=== PATIENT | female | born 1985 | race Two or more races ===

== ENCOUNTER 2025-02-15 11:17 | Emergency (ER) | payer MEDICARE, MEDICAID, SELFPAY ==
--- NOTE | ~2025-02-15 | CT_ITS ---
EXAMINATION: CT CERVICAL SPINE WITHOUT IV CONTRAST HISTORY: banging head against wall. TECHNIQUE: Helical CT of the cervical spine was performed per standard departmental protocol. Coronal and sagittal reformatted images were also evaluated. One or more of the following techniques was used for dose reduction: Automated exposure control, adjustment of the mA and/or kV according to patient size, use of iterative reconstruction technique. DLP: 627 mGy-cm COMPARISON: There are no prior studies for comparison. FINDINGS: CERVICAL SPINE: The vertebral bodies maintain normal height and alignment without evidence of fracture or subluxation. There is mild degenerative disc disease at the C5-6 level, with disc space narrowing and osteophyte formation. The remaining intervertebral disc spaces are maintained. Evaluation for disc pathology is limited by lack of intrathecal contrast material, however. BRAIN: The visualized portion of the brain is unremarkable. SINUSES: The visualized paranasal sinuses, mastoid air cells and middle ear cavities are unremarkable. LUNG APICES: The visualized lung apices are clear. 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 CT/CT cervical spine wo IV con IMPRESSION: No evidence of fracture or malalignment of the cervical spine. Electronically signed by: Liam Castellanos MD 02/15/2025 01:27 PM EDT
--- NOTE | ~2025-02-15 | CT_ITS ---
EXAMINATION: CT HEAD WITHOUT IV CONTRAST HISTORY: RUELAS s/p banging head against wall. TECHNIQUE: Unenhanced helical CT of the head was performed per standard departmental protocol. Coronal and sagittal reformats of the head were also evaluated. One or more of the following techniques was used for dose reduction: Automated exposure control, adjustment of the mA and/or kV according to patient size, use of iterative reconstruction technique. DLP: 654 mGy-cm COMPARISON: There are no prior studies for comparison. FINDINGS: BRAIN: The brain parenchyma is unremarkable. There is normal washburn/white differentiation. The ventricular system is normal in size and configuration. There is no mass effect or midline shift. No intra- or extra-axial fluid collections are identified. SINUSES: The visualized paranasal sinuses are clear. The mastoid air cells and middle ear cavities are well pneumatized. ORBITS: The visualized orbits are unremarkable. BONES/SOFT TISSUES: The extracranial soft tissues are unremarkable. The calvarium is intact. No suspicious lytic or sclerotic lesions. CT/CT head/brain wo IV con IMPRESSION: Unremarkable unenhanced head CT. Electronically signed by: Liam Castellanos MD 02/15/2025 01:23 PM EDT
--- NOTE | 2025-02-15 11:21 | ED_ITS ---
HPI - General Adult General Chief complaint: Head Injury Stated complaint: SECTION 21 + COLLAR Time Seen by Provider: 02/15/25 11:20 Source: patient, EMS, RN notes reviewed and old records reviewed Mode of arrival: EMS History of Present Illness ED Provider: Rose Acosta PA-C HPI narrative: 39-year-old female with past medical history schizophrenia, paranoia, delusions, HTN, hypothyroid, brain tumor, pseudo-seizure, PMDD presenting to the ED via EMS on Section [facility] from [facility] s/p banging head against wall [employer]. Patient reports some headache and left-sided neck pain. Denies LOC. No reported anticoagulation use. Denies vision change or loss, nausea, vomiting, weakness Related Data Allergies Allergy/AdvReac Type Severity Reaction Status Date / Time azithromycin Allergy Unknown Verified 02/15/25 11:39 bacitracin Allergy Unknown Verified 02/15/25 11:39 benzoyl peroxide Allergy Unknown Verified 02/15/25 11:39 benztropine [From Cogentin] Allergy Unknown Verified 02/15/25 11:39 carbamazepine Allergy Unknown Verified 02/15/25 11:39 clozapine Allergy Unknown Verified 02/15/25 11:39 erythromycin base Allergy Unknown Verified 02/15/25 11:39 [From Erythrocin] gabapentin Allergy Unknown Verified 02/15/25 11:39 haloperidol [From Haldol] Allergy Unknown Verified 02/15/25 11:39 lactose Allergy Unknown Verified 02/15/25 11:39 latex Allergy Unknown Verified 02/15/25 11:39 lidocaine Allergy Unknown Verified 02/15/25 11:39 meperidine Allergy Unknown Verified 02/15/25 11:39 metronidazole Allergy Unknown Verified 02/15/25 11:39 midazolam Allergy Unknown Verified 02/15/25 11:39 nickel Allergy Unknown Verified 02/15/25 11:39 phenylephrine Allergy Unknown Verified 02/15/25 11:39 potassium Allergy Unknown Verified 02/15/25 11:39 propylene glycol Allergy Unknown Verified 02/15/25 11:39 risperidone Allergy Unknown Verified 02/15/25 11:39 Review of Systems Review of Systems: Yes all other systems are reviewed and are negative Constitutional: Constitutional: Reports as per HPI Neurologic: Denies Abnormal speech present [facility] Past Medical History Attestation statement: The following information was validated with the patient. Source: old records reviewed Social History Social History Advance Directives: No Advance Directives Information Provided: Yes Do you have a plan to hurt others: No Plan Physical Exam ED Vital Signs: Vital Signs - 24 hr 02/15/25 11:25 02/15/25 11:26 02/15/25 15:23 Temperature 98.2 F 98.2 F 97.6 F Pulse Rate 104 H 104 H 80 Respiratory Rate 18 16 16 Blood Pressure 132/78 132/78 119/65 Pulse Oximetry 96 98 97 Oxygen Delivery Method Room Air Room Air Room Air 02/15/25 15:52 Temperature 97.6 F Pulse Rate 80 Respiratory Rate 16 Blood Pressure 119/65 Pulse Oximetry 97 Oxygen Delivery Method Room Air BMI result Body Mass Index 34.7 Const General: cooperative, healthy appearing and no acute distress Orientation/consciousness: patient oriented x3 Limitations: no limitations HENMT Other: + hematoma noted to central forehead with reproducible tenderness. No palpable step-off. No erythema or ecchymosis. Head: Yes normal to inspection, No Sen's sign and No raccoon eyes Ears: hearing grossly normal bilaterally General nose exam: Normal external nose present Face and sinus: Yes normal facial exam Mouth: Normal oral and palatal mucosa present and no drooling Throat: Yes posterior oropharynx normal, Yes uvula midline, No peritonsillar mass, No uvula laterally displaced and No uvular edema Eyes General: appearance normal, both eyes and all related structures Pupils: Equal, round and reactive pupils present EOM: EOMs intact bilaterally Neck Other: C-collar in place. No midline spinous tenderness or reproducible paraspinal tenderness Neck: Yes normal visual inspection and Yes no meningeal signs Resp Effort & Inspection: normal respiratory effort and no respiratory distress Auscultation: clear to auscultation bilaterally Cardio Rate: regular rate Heart sounds: S1 normal heart sound present and S2 normal heart sound present GI Inspection: Yes normal to inspection Palpation (GI): Soft to palpation, nontender, no guarding and not rigid Back/Spine/Pelvis Other: No midline cervical/thoracic/lumbar spinous tenderness/step-off or deformity Skin Rashes: no rashes Wounds: no wounds Neuro General: patient oriented x3, tone normal, moves all extremities, no meningeal signs, no focal motor deficits and CN's II-XI intact bilaterally Cranial nerves: Yes CN's II-XII intact bilaterally and Yes Equal, round and reactive pupils present Speech: No Abnormal speech present Motor exam (neuro): 5/5 motor strength present throughout Extrem General: Yes normal to inspection Course Course Course Narrative: CT head/brain wo IV con IMPRESSION: Unremarkable unenhanced head CT. CT cervical spine wo IV con IMPRESSION: No evidence of fracture or malalignment of the cervical spine. > C-collar removed Results discussed with patient including worrisome signs and symptoms and strict return precautions, and when to return to the emergency department. They verbalized understanding and feel safe for discharge at this time. Medical Decision Making Medical Decision Making MDM Narrative: 39-year-old female with past medical history schizophrenia, paranoia, delusions, HTN, hypothyroid, brain tumor, pseudo-seizure, PMDD presenting to the ED via EMS on [facility] from [facility] s/p banging head against wall [employer]. On exam vital signs stable, mildly tachycardic, NAD, nontoxic appearing, physical exam as noted above. Concern for ICH vs contusion vs concussion vs fractures. Plan: Head/C-spine CT Please refer to course for remaining clinical decision making, interpretation of labs/imaging results, and discussions with consultants and/or family members. Differential Diagnosis Differential Diagnoses: The differential diagnosis associated with the presen tation includes As above Admission/Observation Consideration of admission/observation: Escalation of care including admission/o bservation considered Lab Data [facility] Lab Attestation statement: I reviewed the patient's lab results. Independent Interpretation I performed an independent interpretation of an: CT Scan Radiology Impression Discussion of test interpretation with radiology: I have reviewed the radiologist's reading. Independent Historian Clinical information obtained from an independent historian. History obtained from or confirmed by: EMS External Record Review External record reviewed: Inpatient record, Office record, Outpatient record, Prior outpatient labs, Prior outpatient radiology, Primary care record and Outside ED record Tests considered The following testing was considered but not selected: As above Prescription Management I considered prescription management with: Other Chronic Conditions Patient?s care impacted by: Other Social Determinants Patient?s care significantly limited by Social Determinants of Health including: Inadequate housing, Problems related to primary support group, Unemployment and Other Social Determinant of Health Discharge Plan Discharge Clinical Impression: Closed head injury Patient Disposition: Xfer Other Transfer Details: [facility] Instructions: Head Injury (DC) Additional Instructions: the CAT scan of your head and neck are unremarkable Take Tylenol and ibuprofen as needed Ice area If symptoms persist or worsen return to the ED Continue home prescribed medications Referrals: Physician,Chanelle Choudhury [Primary Care Provider] - 5 days Interventions: ED Discharge Assessment Last Done: 02/15/25 15:52 Discharge Date/Time: 02/15/25 15:54 Print Language: Telugu
[2025-02-15 11:25] VITALS: BP 132/78; PULSE 104; RESP 18; TEMP 36.8; O2SAT 96
[2025-02-15 11:26] VITALS: BP 132/78; PULSE 104; RESP 16; TEMP 36.8; O2SAT 98; BMI 34.7
[2025-02-15 11:40] VITALS: BP 134/90; PULSE 105; O2SAT 95
--- NOTE | 2025-02-15 12:10 | PC.NURSE ---
Pt section 21 from [facility]. Collar applied by EMS. Pt awaiting CT results. Pt observer at bedside
--- OUTSIDE RECORDS SUMMARY | 2025-02-15 13:56 | XMS_ITS | Data Portability ---
Author Organization [facility] [place] [facility] Address [address] [place] [address] Care Team Providers Care Assistant Professor Of Archaeology Name Role Phone JUAN ANTONIO SANCHES Primary Care Provider JUAN ANTONIO SANCHES Referring Provider Assessment Encounter Date Assessment Date Assessment LastModified by Organization Details LastModified Time 05/19/2022 05/19/2022 37-year-old katerina hi with neck and bilateral upper extremity pain. Symptoms consistent with cervical radiculopathy likely involving C6. At this time due to persistence of the symptoms and despite some mild improvement with the epidural steroid injection, I would like to order an MRI of the cervical spine. I will also start her in physical therapy for the cervical and thoracic spine and we will see her back to review the imaging and discuss further options. She has done relatively well with injections, however, perhaps referral to the surgical team will be necessary Not available 05/19/2022 12:44:28 07/07/2022 07/07/2022 37-year-old katerina hi with neck and bilateral upper extremity pain. Symptoms consistent with C6 radiculopathy and also discogenic versus facet joint mediated pain from the C5-6 region. From my standpoint I would recommend continuation of home exercise program. Also physical therapy will be recommended and as needed follow-up with me for potential repeat injections versus surgical referral. She would like to hold off on the latter 2 options and will see me as needed Not available 07/08/2022 08:52:48 10/26/2022 10/26/2022 Possible psoriat ic arthritis? I reviewed dermatology notes extensively biopsy did reveal eczema but also inverse psoriasis. Polyarthropathy went away with prednisone suggesting an inflammatory component. I think she may also have a mechanical component to her low back pain. Request her x-rays done in 2020 and 2019 on a CD-ROM for my review to see if we need to obtain further studies or MRIs. Differentiate whether there is peripheral and or axial involvement? w ork-up for psoriatic arthritis. Would no longer keep checking an SUZETTE in this individual the SUZETTE will be persistently positive due to her Anna's and she has a known TPO antibody. Do not think this is causing her joint bbiggee Not available 10/26/2022 13:24:51 12/16/2022 12/16/2022 37-year-old fema le with neck and bilateral upper extremity pain. Symptoms likely secondary to the pathology at C5-6 with resultant C6 radiculopathy. Further option discussed with the patient at length. I would leeanne meant for continuation of home exercise program and wgly-gah-tndkwyh pain medications. Continuation of follow-up with rheumatology. Follow-up with me as needed for consideration of repeating the C7-T1 NACHO if clinically warranted. For now her pain is under control and we will hold off on the injection Not available 12/16/2022 13:01:16 Plan of Treatment Reminders Order Date Submit Date Provider Last Modified By Organization Details Last Modified Time Details Appointments None recorded. Lab tb (M tuberculos is), ifn-gamma sherine, blood 2022 023 [facility], [address] [place] [address], [id number], 3 11:10:34 [id number], blood 2022 023 [facility], [address] [place] [address], [id number], 3 11:10:34 C-reactive protein, quantitati ve, serum or plasma 2022 023 [facility], [address] [place] [address], [id number], 3 00:30:45 ESR (erythrocy te sedimentat ion rate), blood 2022 023 [email or web address] [facility], [address] [place] [address], [place], [address], 11:14:07 Referral None recorded. Procedures epidural steroid injection, cervical (PROC) 2021 [email or web address] Not available 13:20:19 fluoroscop ic guidance for needle placement (PROC) 2021 [email or web address] Not available 13:20:19 Surgeries None recorded. Imaging MRI, cervical spine, w/o contrast - PLEASE PUSH IMAGES THROUGH POWER SHARE 2021 [email or web address] [facility] ([facility]), [address] [place] [address], [facility], [place], [address], 10:48:10 Medication Orders betamethas one acetate and sodium phos 6 mg/mL suspension for injection 2021 [email or web address] Not available 10:00:21 Omnipaque 300 mg iodine/mL intravenou s solution 2021 [email or web address] Not available 10:04:25 lidocaine (PF) 10 mg/mL (1 %) injection solution 2021 [email or web address] 8 Not available 10:03:26 Patient TargetsNo targets recorded. Patient Instructions Encounter Date Encounter Id Patient Instructions Last Modified By Organization Details Last Modified Time 04/29/2022 [id number] weight managemen t education Not available 05/04/2022 09:08:43 05/19/2022 [id number] learning about healthy weight Not available 05/19/2022 12:26:45 07/07/2022 [id number] weight managemen t education Not available 07/08/2022 15:11:41 10/26/2022 [id number] back care and preventing injuries: care instructions [email or web address] Not available 10/26/2022 11:05:42 getting back to normal after low back pain: care instructions bbiggee Not available 10/26/2022 11:05:42 learning about relief for back pain bbiggee Not available 10/26/2022 11:05:42 45 minutes spent on this patient encounter [id number] reviewing chart reports history document labs notes chart prep reviewing etiology of problems specific diagnoses explanation and encounter documentation [email or web address] Not available 10/26/2022 13:25:32 Reason for Referral None Reported. Results Created Date Observation Date Name Description Value Unit Range Abnormal Flag Note LastModifiedBy Organization Detail LastModifiedTime 10/26/1910/30/2022 SED RATE BY MODIF IED BRIAN VANGREN sed rate by modified [email or web address] 19 mm/h < or = 20 normal Not Available [facility] [address] [place], [address], 10/30/2022 00:30:44 10/26/1910/30/2022 C-LORRAINE CTIVE PROTE IN C-reactive protein 8.8 mg/L <8.0 high Not Available [facility] [address], [place], [address], 10/30/2022 00:30:45 10/26/1910/30/2022 ABN TEST REFUS AL NIRANJAN Be advis ed that your patie nt has indic ated on the advan ce benef iciar y notic e their decis ion not to recei ve the follo wing labor atory tests . As a resul t, the tests will not be perfo rmed. Not Available [facility] [address] [place], [address], 10/30/2022 00:30:46 10/26/1910/30/2022 ABN TEST REFUS AL abn test refused 528 Not Available [facility] [address] [place], [address], 10/30/2022 00:30:46 10/26/1910/30/2022 QUANT IFERO N(R)- TB GOLD PLUS, 1 TUBE quantiferon( R)-TB gold plus, 1 tube NEGATI VE negati ve normal Negat reyes test resul t. M. sheldon goodwin is compl ex infec tion unlik kenroy. Not Available [facility] [address] [place] [address], [id number], 10/30/2022 00:30:46 10/26/1910/30/2022 QUANT IFERO N(R)- TB GOLD PLUS, 1 TUBE nil 0.04 IU/mL normal Not Available [facility] [address] [place] [address], [address], 10/30/2022 00:30:46 10/26/1910/30/2022 QUANT IFERO N(R)- TB GOLD PLUS, 1 TUBE mitogen-nil >10.00 IU/mL normal Not Available [facility] [address] [place] [address], [place], [address], 10/30/2022 00:30:46 10/26/1910/30/2022 QUANT IFERO N(R)- TB GOLD PLUS, 1 TUBE TB1-nil 0.00 IU/mL normal Not Available [facility] [address] [place] [address], [address], 10/30/2022 00:30:46 10/26/1910/30/2022 QUANT IFERO N(R)- TB GOLD PLUS, 1 TUBE TB2-nil 0.00 IU/mL normal The Nil tube value refle cts the backg round inter feron gamma immun e respo nse of the patie nt's blood sampl e. This value has been subtr acted from the patie nt's displ ayed TB and Mitog en resul ts. Lower than expec pippa resul ts with the Mitog en tube preve nt false -nega tive Quant ifero n readi ngs by detec ting a patie nt with a poten tial immun e suppr essiv e condi tion and/o r subop timal pre-a nalyt ical speci men handl ing. The TB1 Antig en tube is coate d with the M. tuber culos is-sp ecifi c antig ens desig tru to elici t respo nses from TB antig en prime d CD4+ helpe r T-lym phocy ashli. The TB2 Antig en tube is coate d with the M. tuber culos is-sp ecifi c antig ens desig tru to elici t respo nses from TB antig en prime d CD4+ helpe r and CD8+ cytot oxic T-lym phocy ashli. For addit ional infor ricki soriano e refer to https ://ed ucati on.Our[facility]Mate/f aq/FA Q204 (This link is being provi ded for infor nasreen rojo/ educa migel l purpo ses only. ) Not Available [facility] [place] [facility] [address] [place] [address], [place], [address], 10/30/2022 00:30:46 Result Notes None recorded. Problems Name Problem SNOMED Code Status Onset Date Resolution Date Notes Provider Name and Address Organization Details Recorded Time Strain of rotator cuff capsule Active 2016 Boom Paul MD [address] [place] [address], [phone], [facility] 7 10:51:48 Sprain of wrist and/or hand 051720223 Active 2016 Boom Paul MD [address] [place] [address], [phone], [place] [facility] 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 7 10:49:20 Radial styloid tenosynovitis 90515627 Active 2016 Boom Paul MD [address] [place] [address], [phone], [facility] 7 14:20:15 Pain in limb 83181491 Active Woody Suazo MD [address] [place] [address], [phone], [facility] 5 13:58:39 Contusion of knee 73250779 Active Woody Suazo MD [address] [place] [address], [phone], [facility] 5 13:58:39 Problem Notes None recorded. Procedures Surgical History Date Name Laterality Status Provider Name and Address Organization Details Recorded Time 2 Cervical NACHO completed Daniel Bae M.D. [address] [place] [address], [phone], [facility] 04/29/2022 12:32:55 1 Cervical NACHO completed Daniel Bae M.D. [address] [place] [address], [phone], [facility] 04/04/2021 12:09:51 Imaging Results None recorded. Procedure Notes None recorded. Medical Equipment None Reported. Allergies Allergen ID Allergen Name Allergen Category Reaction Reaction Severity Criticality Documentation Date Start Date Code Code System Note Provider Name and Address Organization Details Recorded Time 04855 Zithromax medicatio n Not available Not available Not available 09/18/2014 54380 4 RxNorm Tamsin Rey carpenter [facility] 4 11:32:43 52663 Haldol medicatio n Not available Not available Not available 09/18/2014 83353 9 RxNorm Tamsin Rey carpenter [facility] 4 11:32:53 63681 Demerol medicatio n Not available Not available Not available 09/18/2014 47616 1 RxNorm Tamsin Rey carpenter [facility] 4 11:33:01 64983 midazolam hydrochlo ride medicatio n Not available Not available Not available 09/18/201440192 8 RxNorm Wanda carpenter [facility] 4 11:33:15 63217 azithromy fan medicatio n rash Not available Not available 10/15/2021 80579 RxNorm Annemarie carpenter, [facility] 2 08:30:46 78518 latex environme nt,medica tion Not available Not available Not available 10/15/2021 65087 91 RxNorm Annemarie carpenter [facility] 2 08:30:55 62707 meperidin e medicatio n anaphylax is Not available Not available 10/15/2021 6754 RxNorm Annemarie carpenter [facility] 2 08:31:05 50688 midazolam medicatio n anaphylax is Not available Not available 10/15/2021 6960 RxNorm Annemarie carpenter [facility] 2 08:31:16 86196 risperido ne medicatio n respirato ry distress Not available Not available 10/15/2021 90167 RxNorm Annemarie carpenter [facility] 2 08:31:25 12247 gabapenti n medicatio n Not available Not available Not available 10/15/2021 55458 RxNorm Jesustony Carbajal jayden [facility] 2 08:31:29 61884 lactose food,medi cation Not available Not available Not available 10/15/2021 6211 RxNorm Jesustony Solomon carpenter [facility] 2 08:31:35 14323 lidocaine medicatio n Not available Not available Not available 10/26/2022 6387 RxNorm Stephanie Kiran jayden [facility] 3 10:03:56 Medications Name Sig Start Date Stop Date Status Note LastModified by Organization Details LastModified Time amoxicillin 500 mg capsule TAKE 4 CAPSULES BY MOUTH ONCE DAILY PRIOR TO DENTAL APPTS active Not Available Not Available No t Available fluconazole 100 mg tablet TAKE 1 TABLET BY MOUTH EVERY DAY 10/15 completed Not Available Not Available Not Available terconazole 0.4 % vaginal cream INSERT 1 APPLICATO RFUL VAGINALLY AT BEDTIME FOR 7 DAYS 10/15 completed Not Available Not Available Not Available ivermectin 3 mg tablet TAKE 1 TABLET (3 MG TOTAL) BY MOUTH ONCE FOR ONE DOSE active Not Available Not Available No t Available betamethaso ne valerate 0.1 % topical ointment APPLY TO AFFECTED AREA TWICE A DAY NEEDED FOR RASH active Not Available Not Available No t Available prednisone 10 mg tablet TAKE 6 TABLETS DAILY WITH BREAKFAST FOR 7 DAYS. 10/26 completed Not Available Not Available Not Available benztropine 0.5 mg tablet TAKE 1 TABLET BY MOUTH TWICE A DAY 10/15 completed Not Available Not Available Not Available ketoconazol e 2 % shampoo APPLY TO DAMP SKIN, LATHER, LEAVE ON 5 MINUTES, AND RINSE - TO FACE 3 TIMES A WEEK active Not Available Not Available No t Available ibuprofen 800 mg tablet 10/13 completed Not Available Not Available Not Available tizanidine 4 mg tablet Take 1 tablet every 6 hours by oral route as needed. 10/15 completed Not Available Not Available Not Available fluconazole 150 mg tablet TAKE 1 TABLET EVERY 48 HOURS X2 DOSES 10/26 completed Not Available Not Available Not Available ondansetron HCl 8 mg tablet TAKE 1 TABLET BY MOUTH EVERY 8 HOURS NEEDED FOR NAUSEA active Not Available Not Available No t Available venlafaxine 25 mg tablet 10/15 completed Not Available Not Available Not Available metronidazo le 0.75 % (37.5 mg/5 gram) vaginal gel INSERT 1 APPLICATO RFUL VAGINALLY AT BEDTIME FOR 5 DAYS 10/15 completed Not Available Not Available Not Available clonazepam 0.5 mg tablet TAKE 1 TABLET BY MOUTH TWICE A DAY NEEDED 2022 active Not Available Not Available Not Avai lable sertraline 100 mg tablet TAKE 2 TABLETS BY MOUTH EVERY DAY active Not Available Not Available No t Available prednisone 5 mg tablet TAKE 4 TABLETS FOR 5 DAYS, 2 TABLETS FOR 5 DAYS, 1 TABLETS FOR 5 DAYS 10/15 completed Not Available Not Available Not Available terconazole 0.8 % vaginal cream 10/15 completed Not Available Not Available Not Available clonazepam 1 mg tablet TAKE 1 TABLET BY MOUTH THREE TIMES A DAY DIRECTED active Not Available Not Available No t Available permethrin 5 % topical cream active Not Available Not Available Not Available cyanocobala min (vit B-12) 1,000 mcg tablet TAKE 1 TABLET EVERY DAY 10/13 completed Not Available Not Available Not Available promethazin e 6.25 mg-codeine 10 mg/5 mL syrup 10/15 completed Not Available Not Available Not Available topiramate 25 mg tablet 10/26 completed Not Available Not Available Not Available metronidazo le 500 mg tablet TAKE 1 TABLET BY MOUTH TWICE A DAY FOR 7 DAYS 10/15 completed Not Available Not Available Not Available bupropion HCl SR 100 mg tablet,12 hr sustained-r elease 10/26 completed Not Available Not Available Not Available vancomycin 125 mg capsule TAKE 1 CAPSULE BY MOUTH 4 TIMES A DAY FOR 14 DAYS 10/15 completed Not Available Not Available Not Available lamotrigine 25 mg tablet 10/15 completed Not Available Not Available Not Available levothyroxi ne 75 mcg tablet TAKE 1 TAB DAILY EXCEPT ON SUNDAYS TAKE 2 TABS TAKE ON AN EMPTY STOMACH. active Not Available Not Available No t Available chlorpromaz ine 10 mg tablet TAKE 1 TABLET BY MOUTH EVERY DAY AT BEDTIME NEEDED active Not Available Not Available No t Available carbamazepi ne ER 400 mg tablet,exte nded release,12 hr TAKE 1 TABLET BY MOUTH EVERYDAY AT BEDTIME 10/15 completed Not Available Not Available Not Available betamethaso ne acetate and sodium phos 6 mg/mL suspension for injection Take 2 mL by injection route. 10/26 completed Not Available Not Available Not Available terbinafine HCl 250 mg tablet 10/15 completed Not Available Not Available Not Available amoxicillin 875 mg tablet active Not Available Not Available Not Available lorazepam 0.5 mg tablet 10/13 completed Not Available Not Available Not Available clindamycin 1 % topical gel APPLY TO AFFECTED AREA TWICE A DAY FOR 10 DAYS 10/26 completed Not Available Not Available Not Available Diphenhist 25 mg tablet TAKE 2 TABLETS BY MOUTH AT BEDTIME. (DYE-FREE ) 10/13 completed Not Available Not Available Not Available hydrocortis one 2.5 % lotion APPLY TO AFFECTED AREA TWICE A DAY active Not Available Not Available No t Available dicyclomine 20 mg tablet 10/13 completed Not Available Not Available Not Available dexamethaso ne 1 mg tablet TAKE 1 TABLET AT 11 PM AND THEN GET BLOOD DRAWN AT 8 AM THE NEXT DAY. 10/26 completed Not Available Not Available Not Available meclizine 25 mg tablet TAKE 1 TABLET 3 TIMES A DAY 10/26 completed Not Available Not Available Not Available benzonatate 100 mg capsule TAKE 1-2 CAPSULES BY MOUTH EVERY 6 HOURS WHEN NECESSARY 10/13 completed Not Available Not Available Not Available doxycycline monohydrate 100 mg capsule TAKE 1 CAPSULE BY MOUTH TWICE A DAY FOR 7 DAYS active Not Available Not Available No t Available levothyroxi ne 50 mcg tablet TAKE 1 TABLET BY MOUTH EVERY MORNING. TAKE ON AN EMPTY STOMACH AND DONT EAT FOR 45 MINS 10/15 completed Not Available Not Available Not Available cephalexin 500 mg capsule TAKE 1 CAPSULE BY MOUTH THREE TIMES A DAY FOR 7 DAYS 10/15 completed Not Available Not Available Not Available triamcinolo ne acetonide 0.1 % topical ointment APPLY TWICE DAILY FOR 2 WEEKS TO PSORIASIS AREAS 10/15 completed Not Available Not Available Not Available clotrimazol e-betametha sone 1 %-0.05 % topical cream APPLY TO AFFECTED AREA TWICE A DAY FOR 10 DAYS 10/13 completed Not Available Not Available Not Available Omnipaque 300 mg iodine/mL intravenous solution Inject 3 mL by intraveno us route. 10/26 completed Not Available Not Available Not Available perphenazin e 4 mg tablet 10/15 completed Not Available Not Available Not Available sertraline 25 mg tablet 10/13 completed Not Available Not Available Not Available omeprazole 20 mg capsule,del ayed release TAKE 1 CAPSULE BY MOUTH TWICE A DAY 10/15 completed Not Available Not Available Not Available hydrocortis one 2.5 % topical cream APPLY TO RASH IN GROIN/IND ER BREASTS TWICE A DAY ~MIX WITH KETOCONAZ OLE APPLY active Not Available Not Available No t Available montelukast 10 mg tablet 10/15 completed Not Available Not Available Not Available mupirocin 2 % topical ointment APPLY TO AFFECTED AREA TWICE A DAY active Not Available Not Available No t Available diclofenac sodium 50 mg tablet,ahmet yed release 11/08 completed Not Available Not Available Not Available nystatin 100,000 unit/gram topical powder APPLY TOPICACLL Y 4 TIMES A DAY X14 DAYS 10/15 completed Not Available Not Available Not Available lorazepam 1 mg tablet TAKE 1 TABLET BY MOUTH THREE TIMES A DAY AND ONCE A DAY NEEDED 10/15 completed Not Available Not Available Not Available budesonide DR - ER 3 mg capsule,del ayed,extend ed release 10/15 completed Not Available Not Available Not Available hydroxychlo roquine 200 mg tablet 10/15 completed Not Available Not Available Not Available triamcinolo ne acetonide 0.1 % lotion APPLY TO SCALP 3 TIMES WEEKLY (AT BEDTIME 10/15 completed Not Available Not Available Not Available fluocinonid e 0.05 % topical solution PLEASE APPLY TO RASH IN SCALP TWICE DAILY active Not Available Not Available No t Available methylpredn isolone 4 mg tablets in a dose pack TAKE 6 TABLETS ON DAY 1 DIRECTED ON PACKAGE AND DECREASE BY 1 TAB EACH DAY FOR A TOTAL OF 6 DAYS 10/15 completed Not Available Not Available Not Available albuterol sulfate HFA 90 mcg/actuati on aerosol inhaler TAKE 2 PUFFS BY MOUTH EVERY 6 HOURS NEEDED FOR WHEEZE active Not Available Not Available No t Available ipratropium bromide 42 mcg (0.06 %) nasal spray 10/13 completed Not Available Not Available Not Available trihexyphen idyl 2 mg tablet TAKE 1 TABLET BY MOUTH ONCE A DAY DIRECTED TAKE AROUND NOON. active Not Available Not Available No t Available ketoconazol e 2 % topical cream APPLY TWICE A DAY TO RASH IN GROIN/UND ER BREASTS ~MIX WITH HYDROCORT ISONE active Not Available Not Available No t Available betamethaso ne dipropionat e 0.05 % topical ointment APPLY TO RASH ON HANDS TWICE DAILY UNDER GLOVES NIGHTLY active Not Available Not Available No t Available ondansetron 4 mg disintegrat ing tablet 10/13 completed Not Available Not Available Not Available fluticasone propionate 50 mcg/actuati on nasal spray,suspe nsion active Not Available Not Available Not Available dicyclomine 10 mg capsule 10/13 completed Not Available Not Available Not Available naproxen 500 mg tablet TAKE 1 TABLET BY MOUTH TWICE A DAY NEEDED 10/15 completed Not Available Not Available Not Available amoxicillin 875 mg-jamieu m clavulanate 125 mg tablet 09/17 completed Not Available Not Available Not Available Allergy (diphenhydr amine) 25 mg capsule TAKE 2 CAPSULES AT BEDTIME 10/13 completed Not Available Not Available Not Available cholestyram ine (with sugar) 4 gram oral powder 10/26 completed Not Available Not Available Not Available nitrofurant oin monohydrate /macrocryst als 100 mg capsule TAKE 1 CAPSULE BY MOUTH TWICE A DAY FOR 5 DAYS 10/15 completed Not Available Not Available Not Available Flovent HFA 44 mcg/actuati on aerosol inhaler TAKE 2 PUFFS BY MOUTH TWICE A DAY active Not Available Not Available No t Available levalbutero l HFA 45 mcg/actuati on aerosol inhaler INHALE 1 TO 2 PUFFS BY MOUTH EVERY 4 HOURS NEEDED FOR WHEEZE active Not Available Not Available No t Available Rozerem 8 mg tablet 10/13 completed Not Available Not Available Not Available mometasone 0.1 % topical solution 10/13 completed Not Available Not Available Not Available lidocaine (PF) 10 mg/mL (1 %) injection solution Take 3 mL by injection route. 10/26 completed Not Available Not Available Not Available cholecalcif benito (vitamin D3) 50 mcg (2,000 unit) capsule TAKE 2 CAPSULES (4,000 UNITS TOTAL) BY MOUTH DAILY active Not Available Not Available No t Available Vitamin D3 50 mcg (2,000 unit) tablet TAKE 2 CAPSULES (4,000 UNITS TOTAL) BY MOUTH DAILY. active Not Available Not Available No t Available Orsythia 0.1 mg-20 mcg tablet TAKE 1 TABLET BY MOUTH EVERY DAY FOR 3 WEEKS, AND THEN 1 WEEK OFF 10/13 completed Not Available Not Available Not Available Aftera 1.5 mg tablet TAKE 1 TABLET BY MOUTH ONCE FOR 1 DOSE. active Not Available Not Available No t Available Vraylar 1.5 mg capsule TAKE 1 CAPSULE BY MOUTH EVERY DAY IN THE MORNING active Not Available Not Available No t Available Vraylar 3 mg capsule 10/13 completed Not Available Not Available Not Available Paxlovid 300 mg (150 mg x 2)-100 mg tablets in a dose pack TAKE 3 TABLETS BY MOUTH TWICE A DAY FOR 5 DAYS active Not Available Not Available No t Available Vitals Date Recorded Body height Body mass index (BMI) Body weight Heart rate Pain severity - 0-10 verbal numeric rating [Score] - Reported Systolic blood pressure Diastolic blood pressure Provider Name and Address Organization Details Last Updated DateTime 2 157.48 cm 39.3 kg/m2 43748.3 6 g 73 /min 7 119 mm[Hg] 79 mm[Hg] Maggie Ward [facility] 2 11:22:49 Date Recorded Body height Body mass index (BMI) Body weight Heart rate Pain severity - 0-10 verbal numeric rating [Score] - Reported Systolic blood pressure Diastolic blood pressure Provider Name and Address Organization Details Last Updated DateTime 2 157.48 cm 39.3 kg/m2 89912.3 6 g 80 /min 7 120 mm[Hg] 76 mm[Hg] Maggie Ward [facility] 2 10:25:29 Date Recorded Body height Body mass index (BMI) Body weight Heart rate Pain severity - 0-10 verbal numeric rating [Score] - Reported Systolic blood pressure Diastolic blood pressure Provider Name and Address Organization Details Last Updated DateTime 2 157.48 cm 39.3 kg/m2 02771.3 6 g 88 /min 5 128 mm[Hg] 76 mm[Hg] Maggie Ward [facility] 2 14:21:26 Date Recorded Body height Heart rate Oxygen saturation Oxygen saturation in Arterial blood by Pulse oximetry Body mass index (BMI) Body weight Systolic blood pressure Diastolic blood pressure Provider Name and Address Organization Details Last Updated DateTime 3 157.48 cm 80 /min 98 % 98 % 39.3 kg/m2 27381.3 6 g 124 mm[Hg] 82 mm[Hg] Stephanie Beck [facility] 3 09:59:14 Date Recorded Body height Body mass index (BMI) Body weight Pain severity - 0-10 verbal numeric rating [Score] - Reported Provider Name and Address Organization Details Last Updated DateTime 12/16/2022 157.48 cm 39.3 kg/m2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
--- OUTSIDE RECORDS SUMMARY | 2025-02-15 13:56 | XMS_ITS | Encounter Summary ---
Author Organization [facility] Address [address] [place] [address] Care Team Providers Care Concierge Name Role Phone Doroteo Waldron MD Primary Care Provider [phone] Asher Hoyos Unavailable Unavailable Isiah Yoon MD Primary Care Provider [phone] Encounter Details Date Type Department Care Team (Late st Contact Info) Description 11/16/2014 Orders Only [facility] [address] [place] [address] Maninder Oliveira MD [address] [place] [address] Endometriosis, site unspecified Social History Tobacco Use Types Packs/Day Years Used Date Smoking Tobacco: Never Assessed Comments Unknown Sex and Gender Information Value Date Recorded Sex Assigned at Female 12/17/2024 7:12 AM EDT Legal Sex Female 4:40 PM EST Gender Identity Female 12/17/2024 7:12 AM EDT Sexual Orientation Not on file documented as of this encounter Plan of Treatment Not on file documented as of this encounter Visit Diagnoses Diagnosis Endometriosis, site unspecified documented in this encounter Care Teams Concierge Relationship Specialty Start Date End Date Doroteo Waldron MD PCP - General 08/13/14 12/16/24 Isiah Yoon MD [address] [place], [place] [id number] PCP - General Internal Medicine 12/17/24 Asher Hoyos 08/13/14 documented as of this encounter
--- OUTSIDE RECORDS SUMMARY | 2025-02-15 13:56 | XMS_ITS | Encounter Summary ---
Author Organization [facility] Address [address] [place] [address] Care Team Providers Care Ornamental Metal Fabricator Apprentice Name Role Phone Asher Hoyos Primary Care Provider UnavailDoroteo Townsend MD Primary Care Provider [phone] Asher Hoyos Unavailable Unavailable Isiah Yoon MD Primary Care Provider [phone] Encounter Details Date Type Department Care Team (Late st Contact Info) Description 02/15/2014 Clinical Conversion Encounter [facility] [address] [place] [address] Janina Man, EMILY [address] [place] [address] Social History Tobacco Use Types Packs/Day Years Used Date Smoking Tobacco: Never Assessed Comments Unknown Sex and Gender Information Value Date Recorded Sex Assigned at Female 12/17/2024 7:12 AM EDT Legal Sex Female 4:40 PM EST Gender Identity Female 12/17/2024 7:12 AM EDT Sexual Orientation Not on file documented as of this encounter Miscellaneous Notes * Letter - Janina Man NP - 11/29/2014 9:13 AM EST [id number] OROZCO [place], [place]. February 15, 2014 PUSHPA OROZCO [address] [id number] #[id number] : 1985 VISIT ID : [id number] Dear Ms. Orozco, This letter is in regards to your recent visit ultrasound. I am pleased to report the results showed normal ovaries and uterus. If you have any questions or concerns, please feel free to contact me. Sincerely, Janina Man NP Department of Gynecology [phone] DMM:geeta J: 0 CC: THIS DOCUMENT WAS ELECTRONICALLY AUTHENTICATED BY Janina Man NP ON 02/21/2014 10:18:55 PUSHPA OROZCO # [id number] documented in this encounter Plan of Treatment Not on file documented as of this encounter Visit Diagnoses Not on filedocumented in this encounter Care Teams Ornamental Metal Fabricator Apprentice Relationship Specialty Start Date End Date Asher Hoyos PCP - General 01/27/09 08/12/14 Doroteo Waldron MD PCP - General 08/13/14 12/16/24 Isiah Yoon MD [address] [place] [address] PCP - General Internal Medicine 12/17/24 Asher Hoyos 08/13/14 documented as of this encounter
--- OUTSIDE RECORDS SUMMARY | 2025-02-15 13:56 | XMS_ITS | Encounter Summary ---
Author Organization [facility] Address [address] [place] [address] Care Team Providers Care Pediatric Dentist Name Role Phone Doroteo Waldron MD Primary Care Provider [phone] Asher Hoyos Tapasya MD Primary Care Provider [phone] Reason for Referral * Physical Therapy (Routine) - Pending Review Specialty Diagnoses / Procedures Referred By Contac t Referred To Contact Diagnoses Myofascial pain dysfunction syndrome High-tone pelvic floor dysfunction Constipation, unspecified constipation type Pelvic pain in female Diana Singleton MD [address] [place] [address] for Outpatient Care, [address] [place] [address] Phone: tel: Referral ID Status Reason Start Date Expiration Date V isits Requested Visits Authorized [id number] Pending Review 11/22/2024 02/15/2026 1 1 Encounter Details Date Type Department Care Team (Late st Contact Info) Description 11/22/2024 Transcribe Orders Outpatient Physical Therapy [address] [place] [address] [address] [place] [address] Diana Singleton MD [address] [place] [address] for Outpatient Care, [address] [place] [address] Myofascial pain dysfunction syndrome (Primary Dx); High-tone pelvic floor dysfunction; Constipation, unspecified constipation type; Pelvic pain in female Social History Tobacco Use Types Packs/Day Years Used Date Smoking Tobacco: Never Assessed Comments Unknown Sex and Gender Information Value Date Recorded Sex Assigned at Female 12/17/2024 7:12 AM EDT Legal Sex Female 4:40 PM EST Gender Identity Female 12/17/2024 7:12 AM EDT Sexual Orientation Not on file documented as of this encounter Plan of Treatment Scheduled Referrals Name Type Priority Associated Diagnoses Orde r Schedule Ambulatory Referral to Physical Therapy Outpatient Referral Routine Myofascial pain dysfunction syndrome High-tone pelvic floor dysfunction Constipation, unspecified constipation type Pelvic pain in female Expected: 11/22/2024 (Approximate), Expires: 11/22/2025 documented as of this encounter Visit Diagnoses Diagnosis Myofascial pain dysfunction syndrome- Primary Unspecified myalgia and myositis High-tone pelvic floor dysfunction Constipation, unspecified constipation type Pelvic pain in female Unspecified symptom associated with female genital organs documented in this encounter Care Teams Pediatric Dentist Relationship Specialty Start Date End Date Doroteo Waldron MD PCP - General 08/13/14 12/16/24 Isiah Yoon MD [address] [place] [address] PCP - General Internal Medicine 12/17/24 Asher Hoyos 08/13/14 documented as of this encounter
--- OUTSIDE RECORDS SUMMARY | 2025-02-15 13:56 | XMS_ITS | Encounter Summary ---
Author Organization [facility] Address [address] [place] [address] Care Team Providers Care Accounts Receivable Accountant Name Role Phone Doroteo Waldron MD Primary Care Provider [phone] Asher Hoyos Unavailable Unavailable Isiah Yoon MD Primary Care Provider [phone] Encounter Details Date Type Department Care Team (Late st Contact Info) Description 11/16/2014 Orders Only [facility] [address] [place] [address] Maninder Oliveira MD [address] [place] [address] Endometriosis, site unspecified Social History Tobacco Use [...] unspecified documented in this encounter Care Teams Accounts Receivable Accountant Relationship Specialty Start Date End Date Doroteo Waldron MD PCP - General 08/13/14 12/16/24 Isiah Yoon MD [address] [place], [place] [id number] PCP - General Internal Medicine 12/17/24 Asher Hoyos 08/13/14 documented as of this encounter
--- OUTSIDE RECORDS SUMMARY | 2025-02-15 13:56 | XMS_ITS | Encounter Summary ---
Author Organization [facility] Address [address] [place] [address] Care Team Providers Care Teletypesetter Name Role Phone Asher Hoyos Primary Care Provider UnavailDoroteo Townsend MD Primary Care Provider [phone] Asher Hoyos Unavailable Unavailable Isiah Yoon MD Primary Care Provider [phone] Encounter Details Date Type Department Care Team (Late st Contact Info) Description 12/18/2013 Clinical Conversion Encounter [facility] [address] [address] Maninder Oliveira MD [address] [place] [id number] Social History Tobacco Use Types Packs/Day Years Used Date Smoking Tobacco: Never Assessed Comments Unknown Sex and Gender Information Value Date Recorded Sex Assigned at Female 12/17/2024 7:12 AM EDT Legal Sex Female 4:40 PM EST Gender Identity Female 12/17/2024 7:12 AM EDT Sexual Orientation Not on file documented as of this encounter Progress Notes * Maninder Oliveira MD - 11/28/2014 10:01 PM EST [id number] G[place] 12/18/2013 Name: PUSHPA OROZCO LC#: [id number] : 1985 Visit ID: [id number] Second Visit ID: [id number] HISTORY OF PRESENT ILLNESS: The patient is a 28-year-old premenopausal female who presents as a consult from Dr. Medeiros regarding pelvic pain. The patient reports that she had what appears to be a blighted ovum, she was approximately 2 to 3 months or long and she was admitted at [facility] and they did some testing. She ended up having a D and C. She reports that she was doing fine after she got her menses a couple of times normal and then several months ago was noting lower pelvic pain. She reports that the pain is in the suprapubic bilateral quadrants, constant and it may radiate to her back. She denies that it is intensified with urinating or moving the bowels. She does have similar pain or a slightly different pain when she is constipated and she strains to move her bowels, but in general it is not associated with voiding. 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 She is currently not sexually active, was so last year and reports that she was not having any pain. No problems urinating with pain, discomfort, dysuria, hematuria, some increased frequency, but nothing significant. She states that she has some vaginal odor, but no discharge. Again, no abnormal bleeding intermenstrually, did not have any when she was having intercourse. She has had several ultrasounds with Dr. Medeiros and per the patient, nothing abnormal found and we do have report here from October from his office and what was performed and nothing abnormal was found. The patient was diagnosed in the past with irritable bowel, reports not having any problems now. Regular bowel movements once a day of normal formed stool, was told to stay off the gluten and that has made her intestines better. No incontinence. PAST OBSTETRICAL HISTORY: SAB with D and C in July 2013. PAST GYNECOLOGICAL HISTORY: The patient with normal Paps. PAST MEDICAL HISTORY: Primary is Dr. Waldron. The patient reports some schizoaffective disorder and irritable bowel. Currently reports that she is on Thorazine and Trilafon. Avoiding gluten because of her bowels. ALLERGIES: NUMEROUS ALLERGIES TO DEMEROL, VERSED, METRONIDAZOLE, RISPERDAL, COGENTIN, LATEX, GLUTEN, HALDOL AND ZITHROMAX. PAST SURGICAL HISTORY: Nothing recently. PSYCHOSOCIAL: Never smoked. Denies alcohol use, caffeine once a week. MEDICATIONS: Also, on Zoloft 1 tablet a day, Klonopin, Cogentin, Topamax, Aviane and Benadryl. REVIEW OF SYSTEMS: All that is pertinent in history of present illness, see sheet, but negative constitutional, HEENT, neck, endocrine, breasts, cardiac, pulmonary, hepatic and hematologic. Remainder of systems reviewed and negative or nonpertinent. PHYSICAL EXAMINATION: Well-developed female in no apparent distress. Height 5 feet 1 inch, weight 160 and blood pressure 126/68. Mood appropriate. Skin: No rash. Musculoskeletal: Intact. Lymphatics: No lymphedema or enlarged lymph nodes. Neck: Supple. No masses, nodes or increased thyroid. Normal respiratory efforts and rhythm observed. Abdomen: Soft and nontender to superficial palpation and some mild tenderness to deep palpation in the lower abdomen, bilateral lower quadrants. No rebound or guarding. No CVA tenderness. No enlarged liver or spleen. Lower extremities: Nontender, no edema. Vulva: Normal. Vagina: Normal, well-supported compartments. No undue discharge or abnormal bleeding. Cervix is long and closed. No cervical motion tenderness. Uterus itself is mildly tender. Palpation of bladder and on bimanual, no tenderness. Adnexal area is nontender, no masses. Rectal: No lesions or masses. ASSESSMENT AND PLAN: The patient with new onset of this pelvic pain over the last several months. Exam is demonstrating some tenderness of the uterus. The patient is not quite certain if this is the pain she is feeling. Little unusual would be something gynecologic like endometriosis given that her menses cause her [id number] cramps, so there is no intensification of the constant pain at the time of her menses and when she was having intercourse was not having pain, nonetheless always a possibility. The patient is following up with GI specialist as well. I would repeat an ultrasound here. If nothing seen, can be placed on oral contraceptive pill for 4 months. If not better and continues and nothing from a GI perspective found, then would recommend laparoscopy. If nothing seen at the time of laparoscopy, would do biopsies in cul-de-sac and make sure she does not have microscopic endometriosis, but again I am sure this is not quite fit a patient with endometriosis. If something is found on ultrasound, we will evaluate and treat accordingly. Maninder Oliveira MD [phone] RB:nalini J: [id number] / [id number] CC: Doroteo Waldron MD, <Second referring Dr Name> THIS DOCUMENT WAS ELECTRONICALLY AUTHENTICATED BY Maninder Oliveira MD ON 12/26/2013 09:20:43 documented in this encounter Plan of Treatment Not on file documented as of this encounter Visit Diagnoses Not on filedocumented in this encounter Care Teams Teletypesetter Relationship Specialty Start Date End Date Asher Hoyos PCP - General 01/27/09 08/12/14 Doroteo Waldron MD PCP - General 08/13/14 12/16/24 Isiah Yoon MD [address] [place] [id number] PCP - General Internal Medicine 12/17/24 Asher Hoyos 08/13/14 documented as of this encounter
--- OUTSIDE RECORDS SUMMARY | 2025-02-15 13:56 | XMS_ITS | Clinical Summary ---
Author Organization [facility] Address [address] [place] [address] Care Team Providers Care Tunnel Inspector Name Role Phone Asher Hoyos Unavailable Unavailable Isiah Yoon MD Primary Care Provider [phone] Allergies Active Allergy Reactions Criticality Noted Date Comments Azithromycin Other (See Comments) 12/18/2013 Clonidine Unknown 12/17/2024 Pt states I don't remember, it's been so many years. Metronidazole Hives 12/17/2024 Gabapentin Unknown 12/17/2024 Haloperidol Unknown 12/17/2024 Something psychiatric Latex, Natural Rubber Unknown 12/17/2024 Lidocaine Rash Low 12/17/2024 Meperidine Other (See Comments) 12/18/2013 Anaphylaxis Midazolam Other (See Comments) 12/18/2013 Polyethylene Glycol 3350 Unknown 12/17/2024 Neomycin Unknown 12/17/2024 Risperidone Unknown 12/17/2024 Medications VITAMIN D3 1,000 unit capsule 12/18/2013 Active Text: Topamax TABS 12/18/2013 Active Text: Thorazine TABS 12/18/2013 Active Text: Cogentin TABS 12/18/2013 Active Text: KlonoPIN TABS 12/18/2013 Active Text: Zoloft TABS 12/18/2013 A ctive Text: Benadryl TABS 12/18/2013 Active Active Problems Problem Noted Date Diagnosed Date Suprapubic pain 02/12/2014 Overview (12/03/2014): Abdominal Pain Above The Pubic Area (Suprapubic) Dysmenorrhea 02/12/2014 Overview (12/03/2014): Dysmenorrhea Encounters Date Type Department Care Team Description 12/17/2024 6:42 AM EDT - 12/17/2024 11:30 AM EDT Emergency [facility] [address] [place] [address] Tingling of face (Primary Dx); Long-term current use of benzodiazepine; Brain fog; Nightmares Discharge Disposition: Home or Self Care 11/22/2024 Transcribe Orders Outpatient Physical Therapy [address] [place] [address]. [address] [place] [address] Diana Singleton MD Myofascial pain dysfunction syndrome (Primary Dx); High-tone pelvic floor dysfunction; Constipation, unspecified constipation type; Pelvic pain in female from Last 3 Months Social History Tobacco Use Types Packs/Day Years Used Date Smoking Tobacco: Never Assessed Comments Unknown Sex and Gender Information Value Date Recorded Sex Assigned at Female 12/17/2024 7:12 AM EDT Legal Sex Female 4:40 PM EST Gender Identity Female 12/17/2024 7:12 AM EDT Sexual Orientation Not on file Last Filed Vital Signs Vital Sign Reading Time Taken Comments Blood Pressure 112/72 12/17/2024 11:12 AM EDT Pulse 68 12/17/2024 11:12 AM EDT Temperature 36.9 ??C (98.4 ??F) 12/17/2024 11:12 AM E DT Respiratory Rate 18 12/17/2024 11:12 AM EDT Oxygen Saturation 99% 12/17/2024 11:12 AM EDT Inhaled Oxygen Concentration - - Weight 110 kg (243 lb) 12/17/2024 7:00 AM EDT Height 157.5 cm (5' 2 ) 12/17/2024 7:00 AM EDT Body Mass Index 44.45 12/17/2024 7:00 AM EDT Plan of Treatment Health Maintenance Due Date Last Done Comments Depression Screening 1987 Hepatitis C Screening 2001 HPV/Cotest 2013 Breast Cancer Screening 2023 COVID-19 Vaccine ( season) 2024 07/30/2023, 02/27/2022, 02/27/2022, Additional history exists Influenza Vaccine (Season Ended) 2025 07/02/2023, 09/01/2022, 09/01/2021, Additional history exists Lipid Panel 08/07/2025 08/07/2020 Blood Pressure 12/17/2025 12/17/2024 Cervical Cancer Screening 12/01/2026 Pap Smear 12/01/2026 12/01/2023 Hemoglobin A1c 02/20/2027 02/21/2024, 02/03, 05/22/2021, Additional history exists DTaP,Tdap,and Td Vaccines (4 - Td or Tdap) 07/30/2033 07/30/2023, 02/25/2018, 10/04/2007 Pneumococcal Vaccine: Pediatrics (0 to 5 Years) and At-Risk Patients (6 to 64 Years) Aged Out 02/19/2021, 06/12/2020 No longer eligibl e based on patient's age to complete this topic Meningococcal Vaccines Aged Out No lo nger eligible based on patient's age to complete this topic Procedures Procedure Name Priority Date/Time Associated Diagnosis Comments DRUG SCREEN, URINE STAT 12/17/2024 9: 13 AM EDT URINALYSIS WITH URINE CULTURE REFLEX STAT 12/17/2024 9:13 AM EDT , URINE STAT 12/17/2024 9:13 AM EDT CBC AND DIFFERENTIAL STAT 12/17/2024 9:03 AM EDT TSH REFLEX FRT4,T3 Routine 12/17/2024 9: 03 AM EDT CBC AND DIFFERENTIAL STAT 12/17/2024 9:03 AM EDT BASIC METABOLIC PANEL STAT 12/17/2024 9:03 AM EDT from Last 3 Months Results * (ABNORMAL) Drug Screen, Urine (12/17/2024 9:13 AM EDT) 6-Aceytlmorphine Screen, Urine Negative Negative 12/17/2024 9:54 AM EDT [facility] Comment:Add on order [id number] Opiates and Oxycodone, Urine, Confirmation, if confirmation desired. Amphetamines Screen, Urine Negative Negative 12/17/2024 9:54 AM EDT [facility] Comment: Screen for Amphetamine, Metamphetamine or other Amphetamine-like compounds. Add-on order [id number] Amphetamine, Urine, Confirmation if confirmation desired. Barbiturates Screen, Urine Negative Negative 12/17/2024 9:54 AM EDT [facility] Comment:Add-on order [id number] Barbiturate, Urine, Confirmation if confirmation desired. Benzodiazepine Screen, Urine Positive(A) Negative 12/17/2024 9:54 AM EDT [facility] Comment: Add-on order [id number] Benzodiazepine, Urine, Confirmation if confirmation desired. Buprenorphine Screen, Urine Negative Negative 12/17/2024 9:54 AM EDT [facility] Comment:Add-on order [id number] Buprenorphine, Urine, Confirmation if confirmation desired. Cannabinoids Screen, Urine Negative Negative 12/17/2024 9:54 AM EDT [facility] Comment:Add-on order [id number] Cannabinoids, Urine, if confirmation desired. Cocaine Metabolite Screen, Urine Negative Negative 12/17/2024 9:54 AM EDT [facility] Comment:Add-on order [id number] Cocaine, Urine, Confirmation if confirmation desired. Ethanol Screen, Urine Negative Negative 12/17/2024 9:54 AM EDT [facility] Fentanyl Screen, Urine Negative Negative 12/17/2024 9:54 AM EDT [facility] Comment:Add-on order [id number] Fentanyl Confirmation, Urine, if confirmation desired. Methadone Screen, Urine Negative Negative 12/17/2024 9:54 AM EDT [facility] Comment:Add order [id number] Me thadone, Urine, Confirmation if confirmation desired. Opiates Screen, Urine Negative Negative 12/17/2024 9:54 AM EDT [facility] Comment: Screen for Morphine, Codeine, Hyrdocodone, Hydromorphone, or other Morphine- related opiates. Add on order [id number] Opiates and Oxycodone, Urine, Confirmation if confirmation desired. Oxycodone Screen, Urine Negative Negative 12/17/2024 9:54 AM EDT [facility] Comment:Add-on order [id number] Opiates and Oxycodone, Urine, Confirmation if confirmation desired. Tramadol Screen, Urine Negative Negative 12/17/2024 9:54 AM EDT [facility] Comment:Add-on order [id number] Tramadol Confirmation, Urine, if confirmation desired. Creatinine, Sudhir Urine 61.0 >=15.0 mg/dL 12/17/2024 9:54 AM EDT [facility] Urine URINE SPECIMEN / Unknown Collection / Unknown 12/17/2024 9:13 AM EDT 12/17/2024 9:[address] [facility] - 12/17/2024 9:54 AM EDT These tests are for screening purposes only and should only be used for medical purposes. ??The cutoff concentrations for determining a positive result are as follows: 6-Acetylmorphine ?10 ng/mL 6-acetylmorphine Amphetamines ?1000 ng/mL d-methamphetamine Barbiturates ?200 ng/mL secobarbital Benzodiazepines ?200 ng/mL nordiazepam Buprenorphine ?5 ng/mL norbuprenorphine Cannabinoids ?50 ng/mL COOH-THC Cocaine ?300 ng/mL benzoylecgonine Ethanol ? 20 mg/dL ethanol Fentanyl ?5 ng/mL norfentanyl Methadone ?300 ng/mL methadone Opiates ? 300 ng/mL morphine Oxycodone ? 100 ng/mL oxycodone Tramadol ?200 ng/mL tramadol False negative and false positive results may occur due to cross-reactivity, patient medications or sample adulteration. ??If the validity of these results is uncertain, confirmatory testing can be done upon specific request. [facility] [place] URINE ORDERABLES Final Result Performing Organization Address [facility] Phone Number [facility] [address] [place] [address] * (HCG), Urine (12/17/2024 9:13 AM EDT) HCG, Urine Random Negative Negative 12/17/2024 9:26 AM EDT [facility] Comment:False positives and false negatives results may occur with qualitative tests for HCG due to unexpected antibodies. Clinical correlation is necessary. Urine URINE SPECIMEN / Unknown Collection / Unknown 12/17/2024 9:13 AM EDT 12/17/2024 9:15 AM EDT [facility] URINE ORDERABLES Final Result Performing Organization Address [facility] Phone Number [facility] [address] [place] [address] * Urinalysis with Reflex to Urine Culture (12/17/2024 9:13 AM EDT) Color, Urine Straw Colorless, Straw, Yellow 12/17/2024 9:22 AM EDT [facility] Clarity, Urine Clear Clear 12/17/2024 9:22 AM EDT [facility] pH, Urine 7.0 5.0 - 9.0 12/17/2024 9:22 AM EDT [facility] Protein, Urine Negative Negative 12/17/2024 9:22 AM EDT [facility] Glucose, Urine Negative Negative 12/17/2024 9:22 AM EDT [facility] Ketone, Urine Negative Negative 12/17/2024 9:22 AM EDT [facility] Bilirubin, Urine Negative Negative 12/17/2024 9:22 AM EDT [facility] Urobilinogen, Urine Negative Negative 12/17/2024 9:22 AM EDT [facility] Blood, Urine Negative Negative 12/17/2024 9:22 AM EDT [facility] Leukocyte, Urine Negative Negative 12/17/2024 9:22 AM EDT [facility] Nitrite, Urine Negative Negative 12/17/2024 9:22 AM EDT [facility] Specific [place], Urine 1.008 1.001 - 1.030 12/17/2024 9:22 AM EDT [facility] White Blood Cells, Urine <1 <=4 /hpf 12/17/2024 9:22 AM EDT [facility] Red Blood Cells, Urine <1 <=2 /hpf 12/17/2024 9:22 AM EDT [facility] Bacteria Urine Rare None Seen, Rare 12/17/2024 9:22 AM EDT [facility] Squamous Epithelial Cells Rare Rare, Few, None Seen /HPF 12/17/2024 9:22 AM EDT [facility] Mucous Threads 1+ 1+, 2+, None Seen 12/17/2024 9:22 AM EDT [facility] Urine MID-STREAM URINE SPECIMEN / Unknown Collection / Unknown 12/17/2024 9:13 AM EDT 12/17/2024 9:15 AM EDT [facility] URINE ORDERABLES Final Result Performing Organization Address City/State/[facility] Co de Phone Number [facility] [address] [place] [address] * CBC and Differential (12/17/2024 9:03 AM EDT) WBC 7.19 4.00 - 11.00 K/uL 12/17/2024 9:10 AM EDT [facility] RBC 4.34 4.00 - 5.20 M/uL 12/17/2024 9:10 AM EDT [facility] Hemoglobin 13.8 12.0 - 15.0 g/dL 12/17/2024 9:10 AM EDT [facility] Hematocrit 41.6 36.0 - 45.0 % 12/17/2024 9:10 AM [facility] MCH 31.8 23.0 - 37.0 pg 12/17/2024 9:10 AM [facility] MCHC 33.2 29.0 - 38.0 g/dL 12/17/2024 9:10 AM [facility] MCV 96 82 - 98 fL 12/17/2024 9:10 AM [facility] RDW 12.1 11.5 - 14.5 % 12/17/2024 9:10 AM [facility] Platelet Count 283 150 - 450 K/uL 12/17/2024 9:10 AM [facility] MPV 9.3 6.0 - 14.0 fL 12/17/2024 9:10 AM [facility] Neutrophil 43.1 % 12/17/2024 9:10 AM [facility] Lymphocyte 45.1 % 12/17/2024 9:10 AM [facility] Monocyte 8.6 % 12/17/2024 9:10 AM [facility] Eosinophil 2.5 % 12/17/2024 9:10 AM [facility] Basophil 0.6 % 12/17/2024 9:10 AM [facility] Immature Granulocyte (Burt, Myelo, Promyelocyte) 0.1 % 12/17/2024 9:10 AM [facility] Absolute Neutrophil Count 3.10 1.50 - 7.70 K/uL 12/17/2024 9:10 AM [facility] Absolute Immature Granulocyte (Burt, Myelo, Promyelocyte) 0.01 0.00 - 0.09 K/uL 12/17/2024 9:10 AM [facility] Absolute Lymphocyte Count 3.24 1.50 - 4.00 K/uL 12/17/2024 9:10 AM [facility] Absolute Monocyte Count 0.62 0.16 - 1.26 K/uL 12/17/2024 9:10 AM [facility] Absolute Eosinophil Count 0.18 0.15 - 0.30 K/uL 12/17/2024 9:10 AM [facility] Absolute Basophil Count 0.04 0.00 - 0.21 K/uL 12/17/2024 9:10 AM EDT [facility] Blood PERIPHERAL BLOOD SPECIMEN / Unknown Venipuncture / Unknown 12/17/2024 9:03 AM EDT 12/17/2024 9:07 AM EDT [facility] LAB BLOOD ORDERABLES Final Res ult Performing Organization Address [facility]/ZIP Co de Phone Number [facility] [address] [place] [address] * TSH with Rflex to Free T4 and T3 (12/17/2024 9:03 AM EDT) TSH 2.61 0.30 - 4.50 uIU/mL 12/17/2024 10:31 AM EDT [facility] Blood PERIPHERAL BLOOD SPECIMEN / Unknown Venipuncture / Unknown 12/17/2024 9:03 AM EDT 12/17/2024 9:07 AM EDT [facility] LAB BLOOD ORDERABLES Final Res ult Performing Organization Address [facility] de Phone Number [facility] [address] [place] [address] * Basic Metabolic Panel (12/17/2024 9:03 AM EDT) Sodium 140 135 - 146 mmol/L 12/17/2024 9:35 AM EDT [facility] Potassium 4.2 3.4 - 5.2 mmol/L 12/17/2024 9:35 AM EDT [facility] Comment:Samples tested in se rum may exhibit a higher potassium value than those tested on plasma. Our current range is based on plasma testing. Chloride 104 98 - 110 mmol/L 12/17/2024 9:35 AM EDT [facility] Total CO2/Bicarbonat e 27 24 - 32 mmol/L 12/17/2024 9:35 AM EDT [facility] Anion Gap 9 2 - 15 mmol/L 12/17/2024 9:35 AM EDT [facility] BUN 12 7 - 24 mg/dL 12/17/2024 9:35 AM EDT [facility] Creatinine, Blood 0.90 0.50 - 1.10 mg/dL 12/17/2024 9:35 AM EDT [facility] Glucose, Blood 92 50 - 100 mg/dL 12/17/2024 9:35 AM EDT [facility] Calcium 8.8 8.5 - 10.5 mg/dL 12/17/2024 9:35 AM EDT [facility] Estimated GFR(CKD-EPI) 79 >=60 mL/min/BSA 12/17/2024 9:35 AM EDT [facility] Blood PERIPHERAL BLOOD SPECIMEN / Unknown Venipuncture / Unknown 12/17/2024 9:03 AM EDT 12/17/2024 9:07 AM EDT [facility] LAB BLOOD ORDERABLES Final Res ult [facility] [address] [place] [address] from Last 3 Months Insurance [facility] MEDICARE Care Teams Tunnel Inspector Relationship Specialty Start Date End Date Isiah Yoon MD [address] [place] [phone] PCP - General Internal Medicine 12/17/24 Asher Hoyos 08/13/14
--- OUTSIDE RECORDS SUMMARY | 2025-02-15 13:56 | XMS_ITS | Data Portability ---
Author Organization [place] - [employer] [facility], P [facility], [employer] - [facility] Address [address] [place] [address] Care Team Providers Care Director Learning Name Role Phone JUAN ANTONIO SANCHES Primary Care Provider JUAN ANTONIO SANCHES Referring Provider Assessment Encounter Date Assessment Date Assessment LastModified by Organization Details LastModified Time 10/20/2023 10/20/2023 38-year-old female with neck and upper extremity pain. Symptoms once again consistent with cervical radiculopathy. She did with the previous C7-T1 LUCY and we will repeat 1 at this time. I will see her back in 2 weeks to reassess and consider further options if clinically warranted [email or web address] Not available 10/22/2023 08:11:12 11/11/2023 11/11/2023 38-year-old female with primarily neck and upper extremity pain. Treated for pathology at C5-6 with degenerative changes and stenosis with resultant radiculopathy. Doing well at the C7-T1 LUCY, however, still symptomatic. Pain level on average 4-6 out of 10. Also has a to take care of, which exacerbates the pain and affecting quality of life. At this point I would recommend continuation of current home exercise program. She will also be scheduled for repeat C7-T1 LUCY to get additional pain down potentially. Consider surgical referral, however, for now she is unable to do the due to the Not available 11/11/2023 14:49:14 05/22/2024 05/22/2024 Left ankle sprain, low back and left hip pain Not available 05/22/2024 09:15:52 Plan of Treatment Reminders Order Date Submit Date Provider Last Modified By Organization Details Last Modified Time Details Appointments Follow Up 2024 01:00P Aamir Bae MD Not available Not available Not available Lab None recorded. Referral None recorded. Procedures epidural steroid injection , cervical (PROC) 2023 024 [facility], [address] [place] [address], [phone], 01/24/2024 16:00:35 fluorosco pic guidance for needle placement (PROC) 2023 024 [facility], [address] [place] [address], [phone], 01/24/2024 16:00:35 epidural steroid injection , cervical (PROC) [address], [address], 11/12/2023 15:37:47 epidural steroid injection , cervical (PROC) 2023 024 [facility], [address] [place] [address], [phone], 10/25/2023 08:54:22 fluorosco pic guidance for needle placement (PROC) 2023 024 [facility], [address] [place] [address], [phone], 10/25/2023 09:06:31 Surgeries None recorded. Imaging XR, ankle, 3 or more view [address], [address], 05/22/2024 09:30:41 XR, pelvis, 1 or 2 view [address], [address], 05/22/2024 09:30:41 Medication Orders Omnipaque 300 mg iodine/mL intraveno us solution 2023 024 [email or web address] Not available 11/29/2023 09:06:55 lidocaine (PF) 10 mg/mL (1 %) injection syringe 2023 024 [email or web address] Not available 11/29/2023 09:07:24 betametha sone acetate and sodium phos 6 mg/mL suspensio n for injection 2023 024 [email or web address] Not available 11/29/2023 09:13:18 Omnipaque 300 mg iodine/mL intraveno us solution 2023 024 Not available 10/27/2023 10:06:36 lidocaine (PF) 10 mg/mL (1 %) injection syringe 2023 024 Not available 10/27/2023 10:07:00 betametha sone acetate and sodium phos 6 mg/mL suspensio n for injection 2023 024 Not available 10/27/2023 10:07:15 Patient TargetsNo targets recorded. Patient Instructions Encounter Date Encounter Id Patient Instructions Last Modified By Organization Details Last Modified Time 10/20/2023 [id number] weight managemen t education Not available 10/21/2023 15:42:07 11/11/2023 [id number] weight managemen t education Not available 11/12/2023 08:44:50 11/24/2023 [id number] weight managemen t education Not available 11/25/2023 08:02:42 05/22/2024 [id number] Reviewed exam an d x-ray findings. Discussed management moving forward. Her radiographs are unremarkable. We discussed management options. We will enroll her in outpatient therapy which I gave her a referral for today. Continue with low impact exercise and activities as tolerated. Ice or heat and anti-inflammatori es as needed. I would expect symptom resolution with physical therapy. Follow-up as needed from there with any ongoing issues or concerns. Not available 05/22/2024 09:01:08 Reason for Referral None Reported. Results Created Date Observation Date Name Description Value Unit Range Abnormal Flag Note LastModifiedBy Organization Detail LastModifiedTime 01/14/20 23 01/13/2023 imagi ng inter preta tion No observ ation record ed. [address], [address], 01/18/2023 15:09:16 01/14/20 23 01/13/2023 imagi ng inter preta tion No observ ation record ed. [address], [address], 01/18/2023 15:09:20 01/14/20 23 01/13/2023 imagi ng inter preta tion No observ ation record ed. [address], [address], 01/18/2023 15:09:23 01/14/20 23 01/13/2023 imagi ng inter preta tion No observ ation record ed. [address], [address], 01/18/2023 15:09:26 05/22/20 24 XR, ankle , 3 or more view No observ [email or web address] [address], [address], 05/22/2024 09:00:45 05/22/20 24 XR, pelvi s, 1 or 2 view No observ ation [facility] ed. [email or web address] [address], [address], 05/22/2024 09:16:03 Result Notes None recorded. 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 Not Available [facility] 3 04:35:23 Sprain of wrist and/or hand 380628472 Active 2016 Not Available [facility] 3 04:35:23 Radial styloid tenosynovitis 72377705 Active 2016 Not Available [facility] 3 04:35:23 Contusion of knee 40235805 Active Not Available [facility] 3 04:35:23 Strain of rotator cuff capsule Active 2016 Not Available [facility] 3 04:35:23 Pain in limb 51920544 Active Not Available [facility] 3 04:35:24 Degeneration of cervical intervertebra l disc 27066649 Active 2023 Daniel Bae MD [address], [place], [address] , [facility] 4 08:08:12 Cervical spondylosis 573591480 Active 2023 Daniel Bae MD [address], [place], [address] , [facility] 4 08:08:12 Neck pain 13886422 Active 2023 Daniel Bae MD [address], [place], [address] , [facility] 4 08:08:12 Problem Notes None recorded. Procedures Surgical History Date Name Laterality Status Provider Name and Address Organization Details Recorded Time 4 cervical lucy completed MD [address], [place], [address], [facility] 11/24/2023 12:56:46 4 cervical lucy completed MD [address], [place], [address], [facility] 10/22/2023 08:08:25 Imaging Results Imaging Date Name Status LastModified by Organization Details LastModified Time 01/13/2023 imaging interpretation completed [email or web address] [address] [place], [address], 01/18/2023 15:09:16 01/13/2023 imaging interpretation completed [facility] [address] [place], [address], 01/18/2023 15:09:20 01/13/2023 imaging interpretation completed [address], [address], 01/18/2023 15:09:23 01/13/2023 imaging interpretation completed [address], [address], 01/18/2023 15:09:26 05/22/2024 XR, ankle, 3 or more view completed [address], [address], 05/22/2024 09:00:45 05/22/2024 XR, pelvis, 1 or 2 view completed formerly [facility] - [address], [address], 05/22/2024 09:16:03 Procedure Notes None recorded. Medical Equipment None Reported. Allergies Allergen ID Allergen Name Allergen Category Reaction Reaction Severity Criticality Documentation Date Start Date Code Code System Note Provider Name and Address Organization Details Recorded Time 23671 Zithromax medicatio n Not available Not available Not available 01/02/202319637 4 RxNorm Not Available [facility] 3 04:37:52 06796 midazolam hydrochlo ride medicatio n Not available Not available Not available 01/02/2023 8 RxNorm Not Available [facility] 3 04:37:52 75047 risperido ne medicatio n respirato ry distress Not available Not available 01/02/2023 51815 RxNorm Not Available [facility] 3 04:37:52 14749 midazolam medicatio n anaphylax is Not available Not available 01/02/2023 6960 RxNorm Not Available [facility] 3 04:37:53 82721 meperidin e medicatio n anaphylax is Not available Not available 01/02/2023 6754 RxNorm Not Available [facility] 3 04:37:53 31950 lidocaine medicatio n Not available Not available Not available 01/02/2023 6387 RxNorm Not Available [facility] 3 04:37:53 84948 latex environme nt,medica tion Not available Not available Not available 01/02/2023 32581 91 RxNorm Not Available [facility] 3 04:37:53 28459 lactose food,medi cation Not available Not available Not available 01/02/2023 6211 RxNorm Not Available [facility] 3 04:37:53 03847 Haldol medicatio n Not available Not available Not available 01/02/2023 78679 9 RxNorm Not Available [facility] 3 04:37:53 07951 gabapenti n medicatio n Not available Not available Not available 01/02/2023 22147 RxNorm Not Available [facility] 3 04:37:53 87368 Demerol medicatio n Not available Not available Not available 01/02/2023 46392 1 RxNorm Not Available [facility] 3 04:37:53 44916 azithromy fan medicatio n rash Not available Not available 01/02/2023 41542 RxNorm Not Available [facility] 3 04:37:54 Medications Name Sig Start Date Stop Date Status Note LastModified by Organization Details LastModified Time hydrocortis one 5 mg tablet TAKE 1 TABLET BY MOUTH EVERY DAY IN THE EVENING active Not Available Not Available No t Available amoxicillin 500 mg capsule TAKE 4 CAPSULES [...] Not Available Not Available No t Available acetaminoph en 325 mg tablet TAKE 3 TABLETS BY MOUTH EVERY 6 HOURS NEEDED. active Not Available Not Available No t Available prednisone 10 mg tablet TAKE 6 TABLETS DAILY WITH BREAKFAST FOR 7 DAYS. 10/26 completed Not Available Not Available Not Available benztropine 0.5 mg tablet TAKE 1 TABLET BY MOUTH TWICE A DAY 10/15 completed Not Available Not Available Not Available labetalol 200 mg tablet TAKE 1 TABLET (200 MG TOTAL) BY MOUTH 2 TIMES A DAY. active Not Available Not Available No t Available ketoconazol e 2 % shampoo APPLY TO DAMP SKIN, LATHER, LEAVE ON 5 MINUTES, AND RINSE- USE 2 TIMES A WEEK. active Not Available Not Available No t Available miconazole nitrate 2 % topical cream APPLY TO AFFECTED AREA TWICE A DAY (NOT COVERED) active Not Available Not Available No t Available ibuprofen 800 mg tablet TAKE 1 TABLET BY MOUTH 3 TIMES A DAY WITH MEAL(S). active Not Available Not Available No t Available tizanidine 4 mg tablet Take 1 tablet every 6 hours by oral route as needed. 10/15 completed Not Available Not Available Not Available fluconazole 150 mg tablet TAKE 1 TABLET (150 MG TOTAL) BY MOUTH ONCE FOR 1 DOSE. active Not Available Not Available No t Available ondansetron HCl 8 mg tablet TAKE [...] TABLET BY MOUTH TWICE A DAY NEEDED 10/26 completed Not Available Not Available Not Available sertraline 100 mg tablet TAKE 2 TABLETS [...] Not Available Not Available Not Available clotrimazol e 1 % vaginal cream PLACE 1 APPLICATO R (5 G TOTAL) VAGINALLY NIGHTLY AT BEDTIME FOR 7 DAYS. active Not Available Not Available No t Available topiramate 25 mg tablet 10/26 completed Not Available Not Available Not Available metronidazo le 500 mg tablet TAKE 1 TABLET BY MOUTH TWICE A DAY FOR 7 DAYS 10/15 completed Not Available Not Available Not Available nifedipine ER 30 mg tablet,exte nded release TAKE 2 TABLETS BY MOUTH DAILY active Not Available Not Available No t Available amlodipine 5 mg tablet TAKE 1 TABLET (5 MG TOTAL) BY MOUTH DAILY. active Not Available Not Available No t Available liothyronin e 5 mcg tablet TAKE 1/2 TABLET TWICE DAILY IN THE MORNING AND AFTERNOON active Not Available Not Available No t Available bupropion HCl SR 100 mg tablet,12 [...] tablet TAKE 1 TABLET BY MOUTH EVERY NIGHT AT BEDTIME DIRECTED active Not Available Not Available No t Available carbamazepi ne ER 400 mg tablet,exte nded release,12 hr TAKE 1 TABLET BY MOUTH EVERYDAY AT BEDTIME 10/15 completed Not Available Not Available Not Available Miconazole- 7 2 % vaginal cream PLACE 1 APPLICATO R VAGINALLY NIGHTLY AT BEDTIME active Not Available Not Available No t Available levothyroxi ne 100 mcg tablet TAKE 1 TABLET EVERY DAY FOR 6 DAYS PER WEEK. active Not Available Not Available No t Available betamethaso ne acetate and sodium phos 6 mg/mL suspension for injection Take 2 mL by injection route. 2023 active Not Available Not Available Not Avai lable terbinafine HCl 250 mg tablet 10/15 completed Not Available Not Available Not Available levothyroxi ne 88 mcg tablet TAKE 1 TABLET BY MOUTH EVERY MORNING. active Not Available Not Available No t Available amoxicillin 875 mg tablet active Not Available Not Available Not Available magnesium oxide 400 mg (241.3 mg magnesium) tablet TAKE 1 TABLET BY MOUTH EVERY DAY active Not Available Not Available No t Available lorazepam 0.5 mg tablet 10/13 completed [...] completed Not Available Not Available Not Available nifedipine ER 90 mg tablet,exte nded release 24 hr TAKE 1 TABLET BY MOUTH EVERY DAY active Not Available Not Available No t Available meclizine 25 mg tablet TAKE 1 TABLET 3 TIMES A DAY 10/26 completed Not Available Not Available Not Available benzonatate 100 mg capsule TAKE 1 CAPSULE BY MOUTH THREE TIMES A DAY NEEDED FOR COUGH active Not Available Not Available No t Available doxycycline monohydrate 100 mg capsule TAKE [...] completed Not Available Not Available Not Available Gas Relief (simethicon e) 80 mg chewable tablet TAKE 1 TABLET BY MOUTH EVERY 6 HOURS NEEDED. active Not Available Not Available No t Available triamcinolo ne acetonide 0.1 % topical [...] Inject 3 mL by intraveno us route. 2023 active Not Available Not Available Not Avai lable perphenazin e 4 mg tablet 10/15 completed Not Available Not Available Not Available sertraline 25 mg tablet 10/13 completed Not Available Not Available Not Available Senna Laxative 8.6 mg tablet TAKE 1 TABLET BY MOUTH EVERY DAY active Not Available Not Available No t Available omeprazole 20 mg capsule,del ayed release [...] Available Not Available Not Available hydrocortis one 10 mg tablet TAKE 1 TABLET (10 MG TOTAL) BY MOUTH EVERY MORNING. active Not Available Not Available No t Available nystatin 100,000 unit/gram topical powder APPLY TOPICACLL Y 4 TIMES A DAY X14 DAYS 10/15 completed Not Available Not Available Not Available fluocinolon e 0.01 % topical solution APPLY TO AFFECTED AREA TWICE A DAY active Not Available Not Available No t Available lorazepam 1 mg tablet TAKE 1 [...] completed Not Available Not Available Not Available ibuprofen 600 mg tablet TAKE 1 TABLET BY MOUTH EVERY 6 HOURS NEEDED FOR PAIN active Not Available Not Available No t Available fluocinonid e 0.05 % topical solution [...] sulfate HFA 90 mcg/actuati on aerosol inhaler INHALE 2 PUFFS INTO THE LUNGS NIGHTLY AT BEDTIME NEEDED FOR WHEEZING. active Not Available Not Available No t Available ipratropium bromide 42 mcg (0.06 %) nasal spray 10/13 completed Not Available Not Available Not Available trihexyphen idyl 2 mg tablet TAKE 1 AND 1/2 TABLETS (3 MG TOTAL) BY MOUTH DAILY active Not Available [...] Available Not Available Not Available levothyroxi ne 112 mcg tablet TAKE 1 TABLET BY MOUTH EVERY MORNING active Not Available Not Available No t Available amoxicillin 875 mg-donnie m clavulanate 125 mg tablet 09/17 completed Not Available Not Available Not Available oxycodone 5 mg tablet TAKE 1 TABLET (5 MG TOTAL) BY MOUTH EVERY 6 HOURS NEEDED (PARTIAL FILL OKAY) active Not Available Not Available No t Available modafinil 100 mg tablet PLEASE SEE ATTACHED FOR DETAILED DIRECTION S active Not Available Not Available No t Available Allergy (diphenhydr amine) 25 mg capsule TAKE 2 CAPSULES AT BEDTIME 10/13 completed Not Available Not Available Not Available cholestyram ine (with sugar) 4 gram oral powder 10/26 completed Not Available Not Available Not Available nitrofurant oin monohydrate /macrocryst als 100 mg capsule TAKE 1 CAPSULE BY MOUTH TWICE A DAY FOR 7 DAYS active Not Available Not Available No t Available Flovent HFA 44 mcg/actuati on aerosol [...] lidocaine (PF) 10 mg/mL (1 %) injection syringe Take 3 mL by injection route. 2023 active Not Available Not Available Not Avai lable cholecalcif benito (vitamin D3) 50 mcg (2,000 unit) capsule TAKE 2 CAPSULES (4,000 UNITS TOTAL) BY MOUTH DAILY active Not Available Not Available No t Available Vitamin D3 50 mcg (2,000 unit) tablet TAKE 2 CAPSULES (4,000 UNITS TOTAL) BY MOUTH DAILY. active Not Available Not Available No t Available Purelax 17 gram oral powder packet DISSOLVE 17 GRAMS INTO WATER AND DRINK BY MOUTH EVERY DAY active Not Available [...] Available Not Available No t Available Vraylar 4.5 mg capsule TAKE 1 CAPSULE BY MOUTH EVERY DAY DIRECTED active Not Available Not Available No t Available Vraylar 3 mg capsule TAKE 1 CAPSULE BY MOUTH DAILY. active Not Available Not Available No t Available Robitussin Cough-Chest Congestion DM 5 mg-100 mg/5 mL oral liquid TAKE 20 ML (10MG/400 MG/20MLS) BY MOUTH 2 TIMES A DAY. active Not Available Not Available No t Available Wegovy 0.25 mg/0.5 mL subcutaneou s pen injector INJECT 0.5 ML (0.25 MG TOTAL) UNDER THE SKIN EVERY 7 DAYS active Not Available Not Available No t Available Paxlovid 300 mg (150 mg x 2)-100 mg tablets in a dose pack TAKE 3 TABLETS BY MOUTH TWICE A DAY FOR 5 DAYS active Not Available Not Available No t Available Vitals Date Recorded Body height Body mass index (BMI) Body weight Pain severity - 0-10 verbal numeric rating [Score] - Reported Provider Name and Address Organization Details Last Updated DateTime 10/20/2023 157.48 cm 39.3 kg/m2 61678.36 g 6 [facility] 10/20/2023 16:20:01 Date Recorded Body height Body mass index (BMI) Body weight Pain severity - 0-10 verbal numeric rating [Score] - Reported Provider Name and Address Organization Details Last Updated DateTime 11/11/2023 157.48 cm 39.3 kg/m2 76584.36 g 7 [facility] 11/11/2023 14:21:33 Date Recorded Body height Body mass index (BMI) Body weight Pain severity - 0-10 verbal numeric rating [Score] - Reported Heart rate Systolic blood pressure Diastolic blood pressure Provider Name and Address Organization Details Last Updated DateTime 4 157.48 cm 39.3 kg/m2 55781.3 6 g 7 76 /min 118 mm[Hg] 82 mm[Hg] [facility] 4 11:40:39 Date Recorded Body height Body mass index (BMI) Body weight Provider Name and Address Organization Details Last Updated DateTime 05/22/2024 157.48 cm 39.3 kg/m2 84828.36 g Merle Parekh [facility] 05/22/2024 08:35:48 Date Recorded Body mass index (BMI) Body height Pain severity - 0-10 verbal numeric rating [Score] - Reported Body weight Provider Name and Address Organization Details Last Updated DateTime 12/16/2022 39.3 kg/m2 157.48 cm 3 92479.36 g Not Available [facility] 01/02/2023 04:34:22 Social History Question Answer Notes LastModified by N-1-1 Details LastModified Time Tobacco Smoking Status Never Smoker Not Available [facility] 01/02/2023 04:31:29 What Was The Date Of Your Most Recent Tobacco Screening? 05/22/2024 [email or web address] Information not available 05/22/2024 How Much Tobacco Do You Smoke? No [id number] Information not available 01/02/2023 Has Tobacco Cessation Counseling Been Provided? No [email or web address] Information not available 05/22/2024 Sex: Unknown Functional Status Question Answer Note LastModified by N-1-1 Details LastModified Time Do you use any illicit or recreational drugs? No [email or web address] Information not available 05/22/2024 Do you or have you ever used any other forms of tobacco or nicotine? No Information not available 05/22/2024 What is your level of alcohol consumption? None [id number] Information not available 01/02/2023 Are you currently employed? No [id number] Information not available 01/02/2023 Mental Status None recorded. Family History Relationship Description Onset Age of this Age Resolved Age Notes LastModified by Organization Details LastModified Time Mother Neoplasm of liver [id number] Not available 01/02/2023 04:31:43 Sister Lupus erythematosu s [id number] Not available 01/02/2023 04:31:43 Sister Lupus erythematosu s [id number] Not available 01/11/2023 19:39:42 Medical History Condition Response Diabetes N Coronary Artery Disease N Rheumatic Fever N Gout N Arthritis N Emphysema N Tuberculosis N Cancer N Lung Disease N Glaucoma N Pneumonia N Leg or Foot Ulcers N Pacemaker N Anemia N Psoriasis N Stroke/TIA N Hepatitis N Heart Attack ([place]) N Rheumatoid Arthritis N Heart Problems (atrial fibrillation, [place], pacemaker) N Osteoporosis N Kidney Disease N Gynecological HistoryNo gynecological history recorded. Obstetrics History GPAL:G 0 P 0 0 0 0 Past Encounters Encounter ID Performer Location Encounter Start Date Encounter Closed Date Diagnosis/Indication Diagnosis SNOMED-CT Code Diagnosis ICD10 Code Diagnosis Note [id number] MD AQUILINO Daily [facility]GRATION_ DEFAULT_1 _2 , 09/18/2014 00:00:00 09/18/2014 12:10:54 [id number] MD AQUILINO Daily [facility]GRATION_ DEFAULT_1 _2 , 11/20/2014 00:00:00 11/20/2014 16:41:04 [id number] MD AQUILINO Daily IGRATION_ DEFAULT_1 _2 , 01/22/2015 00:00:00 01/22/2015 13:59:06 [id number] Boom Paul MD [facility] [address] [address] 06/23/2017 00:00:00 06/23/2017 10:53:31 [id number] Boom Paul MD [address] [address] 07/21/2017 00:00:00 07/21/2017 10:49:48 [id number] Boom Paul MD [facility] [address] [address] 08/18/2017 00:00:00 08/18/2017 14:20:34 [id number] Obdulio Verduzco DPM [facility] [address] [id number] 09/17/2017 00:00:00 09/17/2017 11:47:41 [id number] _ATHN_MIGR ATION_2 [facility] [address] [address] 10/13/2017 00:00:00 10/18/2017 17:08:02 [id number] Mirtha Cortez MD [facility] OFF[facility] - [address] [id number] 11/08/2017 00:00:00 11/10/2017 16:02:27 [id number] ELIAS Lamb [facility] OFF[facility] - [address] [address] 01/14/2021 00:00:00 01/14/2021 15:30:02 [id number] MD ANTONIO Yang OFFICE - [place] [address] [place] [id number] 02/14/2021 00:00:00 02/17/2021 15:13:16 [id number] MD ANTONIO Yang OFFICE - [address] [id number] 03/21/2021 00:00:00 03/21/2021 11:58:35 [id number] MD ANTONIO Yang OFFICE - [address] [id number] 03/26/2021 00:00:00 04/04/2021 12:09:59 [id number] MD ANTONIO Yang OFFICE - [address] [id number] 04/08/2021 00:00:00 04/14/2021 11:41:34 [id number] Mirtha ALVAREZ OFFICE - [address] [address] 10/15/2021 00:00:00 10/15/2021 15:52:12 [id number] Mirtha ALVAREZ [facility] [address],[facility] [address] [place] [address] 11/11/2021 00:00:00 11/11/2021 19:32:21 [id number] MD ANTONIO Yang OFFICE - [address] [id number] 03/17/2022 00:00:00 03/18/2022 12:26:21 [id number] MD ANTONIO Yang OFFICE - [place] [address] [place] [id number] 04/29/2022 00:00:00 04/29/2022 12:33:03 [id number] MD ANTONIO Yang OFFICE - [address] [id number] 05/19/2022 00:00:00 05/19/2022 12:44:40 [id number] MD ANTONIO Yang OFFICE - [place] [address] [place] [id number] 07/07/2022 00:00:00 07/08/2022 08:53:19 [id number] Mirtha Cortez MD [facility] [place] [address] [place] [phone] 10/26/2022 00:00:00 10/26/2022 13:25:45 [id number] MD [facility] [address] [address] 12/16/2022 00:00:00 12/16/2022 13:01:37 [id number] [facility] [address] [address] 10/20/2023 15:14:34 10/20/2023 16:26:06 Body mass index 30+ - obesity 788960999 Z68.39 Cervical spondylosis 387 281888 M47.812 Degenerati on of cervical intervertebral disc 73849980 M50.30 Neck pain 75037263 M54.2 [id number] Daniel Bae MD [facility] [address] [phone] 11/11/2023 13:56:08 11/11/2023 14:49:00 Body mass index 30+ - obesity 962152674 Z68.39 Cervical spondylosis 387 154615 M47.812 Degenerati on of cervical intervertebral disc 66040175 M50.30 [id number] Daniel Bae MD [facility] [address] [address] 11/24/2023 11:01:03 11/24/2023 11:44:40 Body mass index 30+ - obesity 651922260 Z68.39 Cervical spondylosis 387 092695 M47.812 Degenerati on of cervical intervertebral disc 31031691 M50.30 Neck pain 06207629 M54.2 [id number] MD [facility] [address] [address] 05/22/2024 08:31:47 05/22/2024 09:30:41 Sprain of left ankle [id number] 8186212 S93.402A Body mass index 30+ - obesity 691830013 Z68.39 Pain in pelvis 47098212 R10.2 Low back pain 454672306 M54.50 Health Concerns Section Related Observation LastModified by Organization Detai ls LastModified Time None Recorded Concern Status LastModified by Organization Details LastModified Time None Recorded Advance Directives Directive None Recorded Payers Encounter Date Sequence Insurance Name Policy Number Policy Best Covered Member ID Best Member ID Guarantor Name 10/20/2023 1 [place] [employer] Yaneth Orozco [id number] Yaneth Orozco 10/20/2023 2 [place] Yaneth Orozco [id number] Yaneth Orozco 11/11/2023 1 [place] [employer] Yaneth Orozco [id number] Yaneth Orozco 11/11/2023 2 [place] Yaneth Orozco [id number] Yaneth Orozco 11/24/2023 1 [place] [employer] Yaneth Orozco [id number] Yaneth Orozco 11/24/2023 2 [place] Yaneth Orozco [id number] Yaneth Orozco 05/22/2024 1 [place] [employer] Yaneth Orozco [id number] Yaneth Orozco 05/22/2024 2 [place] Yaneth Orozco [id number] Yaneth Orozco Notes Date Note Type Note Provider Name and Address Organization Details Recorded Time 10/20/2023 text/html Yaneth is a jj y pleasant 38-year-old female see me today for chief complaint of neck and bilateral upper extremity pain. Symptoms consistent with C6 radiculopathy. Similar pain to previous. She had a C7-T1 LUCY in December of last year and did fairly well for the next 5 months with 70% relief. She did get and gave 1 week ago. During the the pain is flared up and she wants to repeat the injection. She is not breast-feeding at this time. She is continue with a home exercise program, however, still has pain despite that. Pain is 6-8 out of 10. No arm weakness reported Daniel Bae MD [address],[facility], [place], [address], [facility], [facility] 10/22/2023 08:11:26 11/11/2023 text/html Yaneth is a jj y pleasant 38-year-old female seeing me today for chief complaint of neck and upper extremity pain. Status post C7-T1 LUCY. Reports 40% relief, however, pain is still present in the neck with radiation to the upper extremities. 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 She has no new onset symptoms since the injection. Daniel Bae MD [address], [place], [address], [facility] 11/11/2023 14:49:30 05/22/2024 text/html Yaneth is here today for a new issue involving her left ankle. She started an exercise program with her sister about 10 days ago. She does not recall an injury but has noted some increased pain in her left ankle since then. She also is having some pain in her pelvic region since she had a earlier in the year. She is pending pelvic floor therapy. She has noted some groin pain and weakness with efforts at lifting her left leg. No neurologic symptoms down the leg. No recent imaging to date for either of these issues. Woody Suazo MD [address], [place], [address], [facility] 05/22/2024 09:16:22 OBGyn Episode No OBEpisode recorded.
--- OUTSIDE RECORDS SUMMARY | 2025-02-15 13:56 | XMS_ITS | Encounter Summary ---
Author Organization [facility] Address [address] [place] [address] Care Team Providers Care Status Controller Name Role Phone Asher Hoyso Primary Care Provider UnavailDoroteo Townsend MD Primary Care Provider [phone] Asher Hoyos Unavailable Unavailable Isiah Yoon MD Primary Care Provider [phone] Encounter Details Date Type Department Care Team (Late st Contact Info) Description 12/22/2013 Clinical Conversion Encounter [facility] [address] [place] [id number] Janina Man, EMILY [address] [place] [address] Social History Tobacco Use Types Packs/Day Years Used Date Smoking Tobacco: Never Assessed Comments Unknown Sex and Gender Information Value Date Recorded Sex Assigned at Female 12/17/2024 7:12 AM EDT Legal Sex Female 4:40 PM EST Gender Identity Female 12/17/2024 7:12 AM EDT Sexual Orientation Not on file documented as of this encounter Miscellaneous Notes * Letter - Janina Man NP - 11/28/2014 10:01 PM EST [id number] RAMIREZ [place], [place]. December 22, 2013 PUSHPA OROZCO [address] [facility] [id number] #[id number] : 1985 VISIT ID : [id number] Dear Ms. Orozco, This letter is in regards to your recent visit with Dr. Maninder Oliveira at which time a vaginal culture was obtained. I am pleased to report the results are negative. If you have any questions or concerns, please feel free to contact me. Sincerely, Janina Man NP Department of Gynecology [phone] DMM:geeta J: 0 CC: THIS DOCUMENT WAS ELECTRONICALLY AUTHENTICATED BY Janina Man NP ON 12/26/2013 08:24:21 PUSHPA OROZCO # [id number] documented in this encounter Plan of Treatment Not on file documented as of this encounter Visit Diagnoses Not on filedocumented in this encounter Care Teams Status Controller Relationship Specialty Start Date End Date Asher Hoyos PCP - General 01/27/09 08/12/14 Doroteo Waldron MD PCP - General 08/13/14 12/16/24 Isiah Yoon MD [address] [place] [id number] PCP - General Internal Medicine 12/17/24 Asher Hoyos 08/13/14 documented as of this encounter
--- OUTSIDE RECORDS SUMMARY | 2025-02-15 13:56 | XMS_ITS | Data Portability ---
Author Organization [facility] Address [address] [place] [address] Care Team Providers Care Renewals Specialist Name Role Phone JUAN ANTONIO SANCHES Primary Care Provider JUAN ANTONIO SANCHES Referring Provider JUAN ANTONIO SANCHES Primary Care Provider Assessment No assessment recorded. Plan of Treatment Reminders Order Date Submit Date Provider Last Modified By Organization Details Last Modified Time Details Appointments None recorded. Lab unlisted lab - sureswab(R) advanced vaginitis plus, tma 2023 024 [facility], [address], [place], [place], [address], 4 09:02:21 ph, vaginal fluid 2023 024 [email or web address] In-House Order For Michael Provider, For Internal Use Only, [address] 4 11:11:51 Referral None recorded. Procedures None recorded. Surgeries None recorded. Imaging US, pelvis, transabdomi nal + transvagina l 2023 024 [facility] [employer] [facility] [facility] - [facility] - Ultrasound, [address] [place], [address], 4 16:44:13 Medication Orders None recorded. Patient TargetsNo targets recorded. Patient InstructionsNo instructions recorded. Reason for Referral None Reported. Results Created Date Observation Date Name Description Value Unit Range Abnormal Flag Note LastModifiedBy Organization Detail LastModifiedTime 10/23/1910/23/2024 CT/GC RNA,T ALEXANDRU,UR OGEN C trach rrna spec ql CYNTHIA+probe NOT DETECT ED not detect ed normal Not Available [facility] [address] [place], [address], 10/23/2024 17:23:48 10/23/19 25 10/23/2024 CT/GC RNA,T ALEXANDRU,UR OGEN N gonorrhoea rrna spec ql CYNTHIA+probe NOT DETECT ED not detect ed normal Not Available [facility] [address] [place], [address], 10/23/2024 17:23:48 10/23/19 25 10/23/2024 CT/GC RNA,T MÓNICA HORVATH OGROSCOE results We recei joelle an APTIM A trans port mediu m with a non-s pecif ic order . Based upon the speci men submi tted, the Chlam ydia Trach omati s/Nei sseri a Gonor rhoea e RNA, TMA test was perfo rmed. If this is not what you inten ded to order , ricki e conta ct your local clien t servi ce repre senta tive immed iatel y so that we can adjus t our messi ng appro priat kenroy. You may also inqui re about alter nativ e or addit ional testi ng. The manav tical perfo rmanc e prasanth cteri stics of this assay , when used to test SureP ath(T M) speci mens have been deter mined by [facility]. The modif icati ons have not been clear ed or appro joelle by the FDA. This assay has been valid ated pursu ant to the CLIA regul ation s and is used for clini shaye purpo ses. For addit ional infor ricki soriano refer to https ://ed ucati on.qu estdi [employer]. com/f aq/FA Q154 (This link is being provi ded for infor nasreen ramon/ educkaren lainez l purpo ses only. ) Not Available [facility] [address], [place], [address], 10/23/2024 17:23:48 03/02/20 24 03/04/2024 ADV VAG PLUS, TMA bv bacteria rrna vag ql CYNTHIA+probe NEGATI VE negati ve normal Not Available [facility] [place] [facility] [address], [place], [address], 03/04/2024 09:02:21 03/02/20 24 03/04/2024 ADV VAG PLUS, TMA lizy rrna vag ql probe NOT DETECT ED not detect ed normal Not Available [facility] [place] [facility] [address], [place], [address], 03/04/2024 09:02:21 03/02/20 24 03/04/2024 ADV VAG PLUS, TMA C glabrata RNA vag ql CYNTHIA+probe NOT DETECT ED not detect ed normal Not Available [facility] [place] [facility] [address], [place], [address], 03/04/2024 09:02:21 03/02/20 24 03/04/2024 ADV VAG PLUS, TMA T vaginalis rrna spec ql CYNTHIA+probe NOT DETECT ED not detect ed normal Not Available [facility] [place] [facility] [address], [place], [address], 03/04/2024 09:02:21 03/02/20 24 03/04/2024 ADV VAG PLUS, TMA C trach rrna spec ql CYNTHIA+probe NOT DETECT ED not detect ed normal Not Available [facility] [place] [facility] [address], [place], [address], 03/04/2024 09:02:21 03/02/20 24 03/04/2024 ADV VAG PLUS, TMA N gonorrhoea rrna spec ql CYNTHIA+probe NOT DETECT ED not detect ed normal Lissette da speci es C. albic ans, C. tropi calis , C. parap shirin is, and/o r C. david schumacher is can be detec pippa, but not diffe renti ated, in the Lissette da spp. resul t. For addit ional infor ricki soriano refer to https ://ed ucati on.[employer]/f aq/FA Q154 (This link is being provi ded for infor nasreen ramon/ pedro luis tidwell purpo ses only. ) Not Available [facility] [place] [facility] [address], [place], [address], 03/04/2024 09:02:21 03/02/2003/02/2024 ph, vagin al fluid pH 4.0 Not Available In-House Order For Michael Provider For Internal Use Only, 03/02/2024 11:10:25 03/02/20 24 03/02/2024 ph, vagin al fluid Amines negati ve Not Available In-House Order For Michael Provider For Internal Use Only, 03/02/2024 11:10:25 10/20/19 25 10/22/2024 URINA LYSIS , COMPL ETE color ur YELLOW yellow normal Not Available [facility] [place] [facility] [address], [place], [address], 10/22/2024 01:31:21 10/20/1910/22/2024 URINA LYSIS , COMPL ETE appearance ur TURBID clear abnormal Not Available [facility] [address], [place], [address], 10/22/2024 01:31:21 10/20/1910/22/2024 URINA LYSIS , COMPL ETE sp gr ur strip 1.027 1.001- 1.035 normal Not Available [facility] [address], [place], [address], 10/22/2024 01:31:21 10/20/19 25 10/22/2024 URINA LYSIS , COMPL ETE pH ur strip < OR = 5.0 5.0-8. 0 normal Not Available [facility] [address], [place], [address], 10/22/2024 01:31:21 10/20/19 25 10/22/2024 URINA LYSIS , COMPL ETE glucose ur ql strip NEGATI VE negati ve normal Not Available [facility] [address], [place], [address], 10/22/2024 01:31:21 10/20/1910/22/2024 URINA LYSIS , COMPL ETE bilirub ur ql strip NEGATI VE negati ve normal Not Available [facility] [address], [place], [address], 10/22/2024 01:31:21 10/20/1910/22/2024 URINA LYSIS , COMPL ETE ketones ur ql strip NEGATI VE negati ve normal Not Available [facility] [address], [place], [address], 10/22/2024 01:31:21 10/20/19 25 10/22/2024 URINA LYSIS , COMPL ETE HGB ur ql strip NEGATI VE negati ve normal Not Available [facility] [address], [place], [address], 10/22/2024 01:31:21 10/20/19 25 10/22/2024 URINA LYSIS , COMPL ETE prot ur ql strip NEGATI VE negati ve normal Not Available [facility] [address], [place], [address], 10/22/2024 01:31:21 10/20/19 25 10/22/2024 URINA LYSIS , COMPL ETE nitrite ur ql strip NEGATI VE negati ve normal Not Available [facility] [place] [facility] [address], [place], [address], 10/22/2024 01:31:21 10/20/19 25 10/22/2024 URINA LYSIS , COMPL ETE leukocyte esterase ur ql strip NEGATI VE negati ve normal Not Available [facility] [place] [facility] [address], [place], [address], 10/22/2024 01:31:21 10/20/19 25 10/22/2024 URINA LYSIS , COMPL ETE WBC #/area urns hpf NONE SEEN /hpf 0-5 normal Not Available [facility] [place] [facility] [address], [place], [address], 10/22/2024 01:31:21 10/20/19 25 10/22/2024 URINA LYSIS , COMPL ETE RBC #/area urns hpf NONE SEEN /hpf 0-2 normal Not Available [facility] [address], [place], [address], 10/22/2024 01:31:21 10/20/19 25 10/22/2024 URINA LYSIS , COMPL ETE squamous #/area urns hpf NONE SEEN /hpf < or = 5 normal Not Available [facility] [address], [place], [address], 10/22/2024 01:31:21 10/20/19 25 10/22/2024 URINA LYSIS , COMPL ETE bacteria #/area urns hpf NONE SEEN /hpf none seen normal Not Available [facility] [place] [facility] [address], [place], [address], 10/22/2024 01:31:21 10/20/19 25 10/22/2024 URINA LYSIS , COMPL ETE hyaline casts #/area urns lpf NONE SEEN /lpf none seen normal Not Available [facility] [place] [facility] [address], [place], [address], 10/22/2024 01:31:21 10/20/19 25 10/22/2024 URINA LYSIS , COMPL ETE service cmnt-imp This urine was manav zed for the prese nce of WBC, RBC, bacte sage, casts , and other forme d eleme nts. Only those eleme nts seen were repor pippa. Not Available [facility] [place] [facility] [address], [place], [address], 10/22/2024 01:31:21 10/20/1910/22/2024 CULTU RE, UR ROUTI NE specimen source URINE Not Available [facility] [address], [place], [address], 10/22/2024 01:31:23 10/20/19 25 10/22/2024 CULTU RE, UR ROUTI NE service cmnt-imp FINAL Not Available [facility] [place] [facility] [address], [place], [address], 10/22/2024 01:31:23 10/20/19 25 10/22/2024 CULTU RE, UR ROUTI NE bacteria ur cult No Growth Not Available [facility] [place] [facility] [address], [place], [address], 10/22/2024 01:31:23 10/20/19 25 10/22/2024 HBSAG W/RFL CONF HBV surface Ag serpl ql ia NON-RE ACTIVE non-re active normal For addit ional elijahr ricki soriano refer to http: //benjamin brockque stdia gnost ics.c om/fa q/FAQ (This link is being provi ded for infor nasreen nal/ educa migel l purpo ses only. ) Not Available [facility] [place] [facility] [address], [address], 10/22/2024 14:34:23 10/20/19 25 10/22/2024 HEP C AB W/REF L HCV HCV Ab serpl ql ia NON-RE ACTIVE non-re active normal HCV antib pedro was non-r eacti ve. There is no labor atory evide nce of HCV infec tion. In most cases , no furth er actio n is requi red. Howev er, if recen t HCV expos ure is suspe cted, a test for HCV RNA (test code 84278 ) is sugge sted. For addit ional infor matio n pleas e refer to http: //[facility] aisha tejada stdia gnost ics.c om/fa q/FAQ 22v1 (This link is being provi ded for infor matio nal/ educa migel l purpo ses only. ) Not Available [facility] [place] [facility] [address], [address], 10/22/2024 14:34:24 10/20/19 25 10/22/2024 HIV1/ 2 AG/AB ,4 W/RFL HIV 1+2 Ab+HIV1 P24 Ag serpl ql ia NON-RE ACTIVE non-re active normal HIV-1 antig en and HIV-1 /HIV- 2 antib odies were not detec pippa. There is no labor atory evide nce of HIV infec tion. PLEAS E NOTE: This infor matio n has been discl osed to you from recor ds whose confi denti ality may be prote cted by state law. If your state requi res such prote ction , then the state law prohi bits you from clive russo any furth er discl osure of the infor matio n witho ut the speci fic writt en conse nt of the perso n to whom it perta ins, or as other zelaya permi tted by law. A gener al autho rizat ion for the relea se of medic al or other infor matio n is NOT suffi cient for this purpo se. For addit ional infor matio n pleas e refer to http: //benjamin tejada stdia gnost ics.c om/fa q/FAQ 106 (This link is being provi ded for infor nasreen rojo/ pedro luis tidwell purpo ses only. ) The perfo rmanc e of this assay has not been clini shauna valid ated in patie nts less than 2 years old. Not Available [facility] [place] [facility] [address] [place], [place], [address], 10/22/2024 14:34:25 10/20/19 25 10/22/2024 RPR (ADLEE TOR) W/REF L RPR ser ql NON-RE ACTIVE non-re active normal Not Available [facility] [place] [facility] [address] [place], [place], [address], 10/22/2024 14:34:25 10/20/19 25 10/24/2024 TIS,M RNA E6/E7 KIET clinical info None given Not Available [facility] [place] [facility] [address] [place], [place], [address], 10/24/2024 15:00:50 10/20/19 25 10/24/2024 TIS,M RNA E6/E7 KIET LMP start date NONE GIVEN Not Available [facility] [place] [facility] [address] [place], [place], [address], 10/24/2024 15:00:50 10/20/19 25 10/24/2024 TIS,M RNA E6/E7 KIET date of previous Pap NONE GIVEN Not Available [facility] [place] [facility] [address] [place], [place], [address], 10/24/2024 15:00:50 10/20/19 25 10/24/2024 TIS,M RNA E6/E7 KIET date previous BX NONE GIVEN Not Available [facility] [place] [facility] [address] [place], [place], [address], 10/24/2024 15:00:50 10/20/19 25 10/24/2024 TIS,M RNA E6/E7 KIET specimen source cvx/vag cyto Cervi x Not Available [facility] [place] [facility] [address], [place], [address], 10/24/2024 15:00:50 10/20/19 25 10/24/2024 TIS,M RNA E6/E7 KIET stat of adq cvx/vag cyto-imp Satis facto ry for evalu ation . Endoc ervic al/tr ansfo rmati on zone compo nent prese nt. Not Available [facility] [place] [facility] [address], [place], [address], 10/24/2024 15:00:50 10/20/19 25 10/24/2024 TIS,M RNA E6/E7 KIET cyto cvx Cytol ogy Resul ts: Negat reyes for intra epith elial lesio n or olivia lópez . Not Available [facility] [address], [place], [address], 10/24/2024 15:00:50 10/20/19 25 10/24/2024 TIS,M RNA E6/E7 KIET cytology cmnt cvx/vag cyto-imp This Pap test has been evalu ated with compu ter ericka pippa techn ology . 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 Cervi shaye sourc es are requi red for HPV testi ng. If a vagin al sourc e from a patie nt who has had a total hyste recto my with remov al of cervi x was submi tted, pleas e conta ct the testi ng labor atory for alter nativ e testi ng optio ns. For addit ional infor ricki soriano e refer to http: //[facility] aisha ramon.que stdia gnost ics.c om/fa q/FAQ 129v1 (This link if provi ded for infor nasreen ramon/ pedro luis tidwell purpo ses only. ) EXPLA NATOR Y NOTE: The Pap is a scree duc test for cervi shaye cance r. It is not a diagn ostic test and is subje ct to false negat reyes and false posit reyes resul ts. It is most relia ble when a satis facto ry sampl e, regul norm obtai tru, is submi tted with relev ant clini shaye findi ngs and histo ry, and when the Pap resul t is evalu ated along with histo ellis and curre nt clini shaye infor matio n. Not Available [facility] [address] [place], [place], [address], 10/24/2024 15:00:50 03/14/20 24 03/14/2024 US, pelvi s, trans abdom inal + trans vagin al No observ ation record ed. Not Available 2023 11:07:10 Result Notes None recorded. Procedures Surgical History Date Name Laterality Status Provider Name and Address Organization Details Recorded Time section completed Stephanie Mendez [facility] 03/02/2024 10:23:17 tonsilectomy/a denoidectomy completed Stephanie Mendez [facility] 03/02/2024 10:23:26 Imaging Results Imaging Date Name Status LastModified by Organization Details LastModified Time 03/14/2024 US, pelvis, transabdominal + transvaginal completed Information not available 03/21/2024 11:07:10 Procedure Notes None recorded. Medical Equipment None Reported. Allergies Allergen ID Allergen Name Allergen Category Reaction Reaction Severity Criticality Documentation Date Start Date Code Code System Note Provider Name and Address Organization Details Recorded Time 4849242 azithromy fan medicatio n Not available Not available Not available 03/02/2024 65253 RxNorm Stephanie carpenter, [facility] 4 10:11:39 5588873 midazolam medicatio n Not available Not available Not available 03/02/2024 6960 RxNorm Stephanie carpenter, [facility] 4 10:11:49 0044112 meperidin e medicatio n Not available Not available Not available 03/02/2024 6754 RxNorm Stephanie carpenter, [facility] 4 10:12:00 1576887 lactose food,medi cation Not available Not available Not available 03/02/2024 6211 RxNorm Stephanie carpenter, [facility] 4 10:12:09 1172286 haloperid ol medicatio n Not available Not available Not available 03/02/2024 5093 RxNorm Stephanie carpenter, [facility] 4 10:12:21 2269076 metronida zole medicatio n Not available Not available Not available 03/02/2024 6922 RxNorm Stephanie carpenter, [facility] 4 10:12:37 7047292 latex environme nt,medica tion Not available Not available Not available 03/02/2024 00488 91 RxNorm Stephanie Jessicabel null, [facility] 4 10:12:47 6783989 risperido ne medicatio n Not available Not available Not available 03/02/2024 33293 RxNorm Stephanie Jessicabel null, [facility] 4 10:12:57 2570718 gabapenti n medicatio n Not available Not available Not available 03/02/2024 03721 RxNorm Stephanie Jessicabel null, [facility] 4 10:13:06 1153940 carbamaze pine medicatio n Not available Not available Not available 03/02/20242001 RxNorm Stephanie Jessicabel null, [facility] 4 10:13:17 5001945 benztropi ne medicatio n Not available Not available Not available 03/02/2024 1424 RxNorm Stephanie Vanessa null, [facility] 4 10:13:32 6675583 Medicinal product containin g macrolide and acting as antibacte rial agent (product) medicatio n Not available Not available Not available 03/02/2024 66615 8007 SNOMED Stephanie Vanessa null, [facility] 4 10:13:44 2780078 bacitraci n medicatio n Not available Not available Not available 03/02/2024 1291 RxNorm Stephanie Jessicabel null, [facility] 4 10:13:54 7339735 benzoyl peroxide medicatio n Not available Not available Not available 03/02/2024 1418 RxNorm Stephanie Jessicabel null, [facility] 4 10:14:16 5473652 lidocaine medicatio n Not available Not available Not available 03/02/2024 6387 RxNorm Stephanie Lebel null, [facility] 4 10:14:24 5154669 neomycin medicatio n Not available Not available Not available 03/02/2024 7299 RxNorm Stephanie Lebel null, [facility] 4 10:14:37 7796862 propylene glycol medicatio n Not available Not available Not available 03/02/2024 77383 RxNorm Stephanie carpenter, [facility] 4 10:14:49 7405117 nickel environme nt Not available Not available Not available 03/02/2024 61590 29 RxNorm Stephanie carpenter, [facility] 4 10:15:05 4966035 carbetape ntane / guaifenes in medicatio n Not available Not available Not available 03/02/2024 37445 6 RxNorm Stephanie carpenter, [facility] 4 10:15:16 4296328 potassium medicatio n Not available Not available Not available 03/02/2024 8588 RxNorm Stephanie carpenter, [facility] 4 10:15:35 8586205 4-phenyle nediamine environme nt Not available Not available Not available 03/02/2024 28588 40 RxNorm Stephanie carpenter, [facility] 4 10:15:57 Medications Name Sig Start Date Stop Date Status Note LastModified by Organization Details LastModified Time ibuprofen 800 mg tablet Take 1 tablet 3 times a day by oral route with meal(s). 2023 active Not Available Not Available Not Avai lable Zoloft 100 mg tablet Take 2 tablets every day by oral route. active Not Available Not Available No t Available Klonopin 1 mg tablet Take 1 tablet 3 times a day by oral route. active Not Available Not Available No t Available levothyroxine 88 mcg active Not Available Not Available Not Available Pepcid active Not Available Not Availa ble Not Available Fish Oil active Not Available Not Avai lable Not Available Artane 3 mg active Not Available Not Availa ble Not Available Thorazine active Not Available Not Raya ilable Not Available multivitamin active Not Available Not Available Not Available Vraylar active Not Available Not Avail able Not Available Vitals Date Recorded Body weight Body mass index (BMI) Body height Systolic blood pressure Diastolic blood pressure Provider Name and Address Organization Details Last Updated DateTime 03/02/2024 492546.0 9 g 45.7 kg/m2 157.48 cm 118 mm[Hg] 68 mm[Hg] Stephanie Mendez [facility] 10:09:41 Social History None recorded. Functional Status Question Answer Note LastModified by Organizat ion Details LastModified Time Do you use any illicit or recreational drugs? No Information not available 03/02/2024 What is your level of alcohol consumption? Occasional rarely Information not available 03/02/2024 Mental Status None recorded. Family History Relationship Description Onset Age of this Age Resolved Age Notes LastModified by Organization Details LastModified Time Maternal Grandmother Malignant tumor of colon Not available 2023 10:22:43 Medical History No medical history recorded. Gynecological History Statement/Question Response Date of Last Pap Date of LMP 02/17/2024 Frequency of Cycle (Q days) 28 Duration of Flow (days) 7 Age at Menarche 10 Current Control Method None Obstetrics History GPAL:G 2 P 0 0 1 1 Type Value Spontaneous 1 Living 1 Total 2 Past Encounters Encounter ID Performer Location Encounter Start Date Encounter Closed Date Diagnosis/Indication Diagnosis SNOMED-CT Code Diagnosis ICD10 Code Diagnosis Note [id number] AZIZA MCGUIRE NP [facility] [address] [place] [address] 03/02/2024 09:50:31 03/02/2024 11:25:29 Pain in pelvis 26188181 R10.2 discussed csection healing, if ultrasound normal pt will cont. to monitor and fu with pcp if any worsening of sx. Vaginitis 09033075 N76.0 enc pt to treat with the meds already given to her at urgent care (diflucan and monistat), will call pt if need to treat differentl y once culture recd. Health Concerns Section Related Observation LastModified by Organization Detai ls LastModified Time None Recorded Concern Status LastModified by Organization Details LastModified Time None Recorded Advance Directives Directive None Recorded Payers Insurance Date Sequence Insurance Name Policy Number Policy Best Covered Member ID Best Member ID Guarantor Name 02/10/2025 1 [place] [employer] Yaneth Orozco [id number] Yaneth Orozco 10/11/2024 2 [place] Yaneth Orozco [id number] Yaneth Orozco 10/08/2024 MEDICARE B[place]: [employer] Yaneth Orozco [id number] Yaneth Ernesto Notes Date Note Type Note Provider Name and Address Organization Details Recorded Time 03/02/2024 text/html Pt called 02/08/20 reporting [facility] C/section. She has seen the staff at the hospital for pain she has been having Describes as heavy abdominal discomfort, will sched. an ultrasound for safety. pt just seen at urgent care a week ago, tested for uti and neg.pt reporting she is uncomfortable vaginally, when urine hits skin feels irritated, urgent care gave rx for diflucan and monistat, pt did not yet treat. AZIZA MCGUIRE, EMILY [address] [place] [address], [phone], [facility] 03/02/2024 11:15:51 OBGyn Episode Ob Episode Information Episode Created Date Number of Fetuses Patient Bloodtype Patient rh Status Prepregnancy Weight lbs Domestic Partner Domestic Partner Phone Father Name Retail Account Representative Status 03/02/20 1 CLOSED Fetus Data First Name Last Name Admitted to NICU Weight (g) Sex Living Outcome Pediatric Complications Fetus ID Race Codes Race Delivery Type F [id number] Pato Calculation Initial Pato Date Initial Exam Date Initial Exam Provider Initial Ultrasound Date Last Menstrual Period Date Ultra Sound Weeks Gestation 0 Eighteen To Twenty Week Pato Update Ultra Sound Date Fundal Height At Umbil Quickening Date Ultra Sound Latest Weeks Gestation Final Pato Confirmed By Final Pato Confirmed Date Final Pato Date Ultra Sound Latest Days Gestation 0 0 Menstrual History Last Menstrual Date Menses Monthly On Bcp Conception Prior Menses Frequency Hcg Plus Date Menarche Onset Age Delivery Information Delivery Date Delivery Type Labor Anesthesia Weeks Gestation Incision Type Labor Labor Length Hrs Delivered By Post Complications Tubal Sterilization Discharge Date Comments 3 Discharge Information Feeding Method Contraceptive Method Maternal HG B and HCT Levels
--- NOTE | 2025-02-15 15:22 | PC.NURSE ---
verbal nurse to nurse report given to chirag at [facility] [phone]
[2025-02-15 15:23] VITALS: BP 119/65; PULSE 80; RESP 16; TEMP 36.4; O2SAT 97
[2025-02-15 15:52] VITALS: BP 119/65; PULSE 80; RESP 16; TEMP 36.4; O2SAT 97
== END 2025-02-15 15:54 | disposition other institution (70) ==
PROVIDERS: Emergency Provider Emergency Medicine
DX: S09.90XA Unspecified injury of head, initial encounter (principal); W22.8XXA Striking against or struck by other objects, initial encounter; Y93.9 Activity, unspecified; Y92.9 Unspecified place or not applicable; Y99.9 Unspecified external cause status; R51.9 Headache, unspecified; I10 Essential (primary) hypertension; E03.9 Hypothyroidism, unspecified; R56.9 Unspecified convulsions; M54.2 Cervicalgia; F20.9 Schizophrenia, unspecified; R00.0 Tachycardia, unspecified; Z79.899 Other long term (current) drug therapy
CPT/HCPCS: 70450; 72125; 99284

== ENCOUNTER → 2025-02-15 11:33 | Outpatient (BNV) | payer MEDICARE, MEDICAID, SELFPAY | PROVIDERS: Emergency Provider Emergency Medicine; Visit Provider Radiology Diagnostic Radiology | DX: M54.2 Cervicalgia (principal); S09.90XA Unspecified injury of head, initial encounter | CPT/HCPCS: 70450; 72125 ==